=== PATIENT | female | born 1945 | race Caucasian/White ===

== ENCOUNTER 2017-03-09 15:57 | Inpatient (IN) | payer MEDICARE ==
[2017-03-09] MEDS ORDERED: Sodium Chloride For Inhalation 0.9% 3 ML NEB ONE (16:28)
[2017-03-09] MEDS ORDERED: Dexamethasone 4 mg/ml Vial ONE (16:30)
[2017-03-09 17:03] LABS: #Basophils 0.1 thou/uL (0.0-0.2); #Lymphocytes 1.6 thou/uL (1.20-3.40); #Monocytes 0.6 thou/uL (0.11-0.59); #Neutrophils 7.2 thou/uL (1.40-6.50); %Basophils 0.6 % (0.0-1.0); %Eosinophils 0.4 % (0.0-10.0); %Lymphocytes 16.6 % (21.0-51.0); %Monocytes 6.3 % (0.0-10.0); Hematocrit 23.5 % (36.0-47.0); Mean Platelet Volume 7.2 fL (7.4-10.4); Red Blood Cell (RBC) Count 2.37 mill/uL (4.20-5.40); White Blood Cell (WBC) Count 9.5 thou/uL (4.8-10.8)
[2017-03-09 17:10] LABS: PTT 79.3 SEC (22.9-36.1); Prothrombin Time 42.7 SEC (12.0-14.7)
[2017-03-09 17:29] LABS: ALT (SGPT) 18 U/L (8-55); AST (SGOT) 10 U/L (5-34); Alkaline Phosphatase 80 U/L (40-150); Anion Gap 16 mmol/L (10-20); BUN (Urea Nitrogen) 43 mg/dL (9.8-20.1); Bilirubin, Total 0.3 mg/dL (0.2-1.2); CK (CPK) 29 U/L (29-168); Calc. Creatinine Clearance 0 mL/min (70-130); Calcium 9.9 mg/dL (7.8-10.44); Carbon Dioxide 19 mmol/L (23-31); Chloride 108 mmol/L (98-107); Estimated GFR-MDRD 42; Globulin 2.3 g/dL (2.4-3.5)
[2017-03-09 17:32] LABS: Troponin I 0.015 ng/mL (< 0.028)
--- NOTE | 2017-03-09 18:49 | RAD ---
SINGLE VIEW OF THE CHEST: 03/09/17 COMPARISON: 02/06/17 HISTORY: Shortness of breath for one to two weeks and dyspnea. FINDINGS: Single view of the chest shows normal sized cardiomediastinal silhouette. The Mediport is unchanged in position. Surgical clips are seen in the left hilar region. There is no evidence of consolidation , mass or pleural effusions. IMPRESSION: No evidence of acute cardiopulmonary disease. POS: [facility]
[2017-03-09] MEDS ORDERED: Heparin 25,000 units/D5W 500 ML ONE (18:50)
--- NOTE | 2017-03-09 18:54 | RAD ---
TWO VIEWS OF THE NECK SOFT TISSUES: 03/09/17 COMPARISON: None. HISTORY: Shortness of breath for one to two weeks that is gradually worsening. Dyspnea. Tightness in her thro at. FINDINGS: Two views of the neck soft tissues shows no evidence of radiopaque foreign body. No prevertebral sof t tissue swelling is seen. No swelling of the epiglottis is seen. Mild degenerative changes are seen in the cervical spine. IMPRESSION: No significant soft tissue abnormality of the neck. POS: [facility]
[2017-03-09] MEDS ORDERED: Ondansetron HCl/PF 4 MG/2 ML Vial IVP PRN (20:38)
[2017-03-09] MEDS ORDERED: Ondansetron ODT 4 MG TAB SL PRN (20:38)
[2017-03-09] MEDS ORDERED: Sodium Chloride 0.9% 1,000 ML IV SCH (20:38)
[2017-03-09] MEDS ORDERED: Heparin 25,000 units/D5W 500 ML IV SCH (20:45)
[2017-03-09] MEDS ORDERED: Dexamethasone 4 mg/ml Vial SLOW IVP SCH (21:00)
[2017-03-09] MEDS ORDERED: Acetaminophen 325 MG TAB PO PRN (21:33)
[2017-03-09] MEDS ORDERED: Dextrose 5% in Water 1,000 ML IV PRN (21:33)
[2017-03-09] MEDS ORDERED: Heparin 25,000 units/D5W 500 ML IVPB SCH (21:33)
[2017-03-09] MEDS ORDERED: Heparin 10,000 UNITS/ 10 ML VIAL SLOW IVP SCH (21:33)
[2017-03-09] MEDS ORDERED: Dextrose 50% Abboject 50 ML SYRINGE SLOW IVP PRN (21:33)
[2017-03-09 22:10] VITALS: BMI 28.4
[2017-03-09 22:48] LABS: Oxyhemoglobin 96.8 % (94.0-97.0)
[2017-03-09 22:50] LABS: Modified Allen's Test POSITIVE; Sodium 137 mmol/L (135-148)
[2017-03-09 22:51] LABS: Vent NO
[2017-03-10] MEDS: HumaLOG 300 UNITS/3 ML VIAL SC PRN ×5 (01:41→23:34)
[2017-03-10 01:52] LABS: PTT 53.5 SEC (22.9-36.1)
[2017-03-10 02:06] LABS: Iron 61 ug/dL (50-170)
[2017-03-10 02:12] LABS: Hematocrit 21.8 % (36.0-47.0)
--- NOTE | 2017-03-10 03:06 | HP ---
PRIMARY CARE PHYSICIAN: Dr. Howard. CHIEF COMPLAINT: \\\\"I can't breathe.\\\\" HISTORY OF PRESENT ILLNESS: Ms. Tian is a pleasant 71-year-old female that has a complicated med ical history. She has a history of lung cancer, status post left upper lobe resection. She develop ed vocal cord paralysis following her surgery for lung cancer. She has been receiving Botox injecti ons for this. She also has a history of coronary artery disease with stent placement and recently d iagnosed with pulmonary embolism on full anticoagulation. She says that she had been having difficu lty with her breathing off and on and she has been seeing Dr. Newton, the customer engagement analyst for Botox injections to help with the vocal cord paralysis. However, she says it appears as if she is not santillan ving much success with these treatments and there was some talk that she may have some type of more permanent treatment for the vocal cord paralysis. She says that in the last few days, she has been becoming increasingly more short of breath. She says she cannot really tell if it is from her heart or from the vocal cord paralysis, but all that she can tell is that she cannot breathe. She also b alie. When she was in the ER, she was treated with neb treatments as well as racemic epinephrine with some improvement in her symptoms. Dr. Newton was called as well as Dr. Smith and they are r ecommending to bring her in the hospital, place her on a heparin drip and continue the neb treatment s, steroids, and possibly racemic epinephrine, if she does not improve, then she may be a candidate for tracheostomy placement. The patient denies any chest pain, but she has had some increase in low er extremity edema. She denies any throat pain, no fevers or chills. REVIEW OF SYSTEMS: Constitutional: Again, no fevers; however, she did mention some chills, no nigh t sweats, and no weight loss. HEENT: No headache, no dizziness, no visual changes, no sore throat, no rhinorrhea, no neck pain, no adenopathy. Pulmonary: She has had some wheezing. No hemoptysis, no cough. Cardiovascular: She denies any chest pain, no PND, no orthopnea. Gastrointestinal: No abdominal pain, no nausea, no vomiting, no change in bowels. Genitourinary: No urinary frequency, hematuria, no hesitancy. Neurologic: No focal weakness, numbness, no seizures. Psychiatric: No symptoms of anxiety or depression. Skin and Integument: No skin changes. No rash. PAST MEDICAL HISTORY: Significant for lung cancer diagnosed in 2015; deep vein thrombosis and pulmo nary embolism; chronic respiratory failure secondary to chronic obstructive pulmonary disease; vocal cord paralysis; coronary artery disease, status post OK and status post stent, she has several nazario ining stents yet it to be placed; diabetes mellitus, type 2. PAST SURGICAL HISTORY: She has had a left upper lobectomy, carotid stent, and coronary stent. SOCIAL HISTORY: She is a former smoker. She occasionally drinks. She is . CODE STATUS: Her code status is FULL CODE. ALLERGIES: No known drug allergies. FAMILY HISTORY: No history of any heritable diseases. CURRENT MEDICATIONS: Include Coumadin 5 mg daily, amantadine 100 mg three times a day, carvedilol 2 5 mg twice a day, Plavix 75 mg daily, losartan 100 mg daily, Lantus insulin 40 units twice a day, losartan 100 mg daily, gabapentin 300 mg three times a day, and Novolin 70/30 on a sliding scale with meals. PHYSICAL EXAMINATION: GENERAL: She is alert and oriented. She appears to be in no acute distress. VITAL SIGNS: Blood pressure was 135/59, heart rate 96, respiratory rate of 29, temperature is 98. HEENT: Her pupils are equal, round, and reactive. Extraocular muscles are intact. Sclerae are ani cteric. Throat no erythema, no exudates. NECK: No adenopathy. No bruits. She did have some mild stridor. LUNGS: She has some mild expiratory wheeze, no rales. CARDIOVASCULAR: She has a normal S1 and S2. I did not appreciate an S3 or S4. No murmurs, clicks, no rubs. ABDOMEN: Soft, it is nontender, nondistended. Positive for bowel sounds. There is no rebound, no guarding. EXTREMITIES: She has got 1+ pitting edema. NEUROLOGICALLY: The exam is nonfocal. LABORATORY DATA: On her lab results, CBC: The white blood cell count is 9.5, hemoglobin 7.9, hemat ocrit is 23, platelet count is 225. INR was 4.2. Sodium 138, potassium 4.6, chloride is 108, CO2 i s 19, BUN of 43, creatinine of 1.2, glucose is 237. ASSESSMENT AND PLAN: 1. This is a 71-year-old female that has a sensation of shortness of breath, which she is attributi ng to vocal cord paralysis. She also has some significant anemia, which is macrocytic anemia. Her hemoglobin and hematocrit is quite a bit lower than it has been in the past, which may be contributi ng to her symptoms as well and she also has a history of coronary artery disease and no need for add itional revascularization, possibly with stent placement. She will be admitted to Telemetry. We wi ll continue neb treatments as well as IV steroids. We will consult her wireless operator in the a.m. fo r further recommendations. She has been placed on a heparin drip in lieu of Coumadin in the event t hat she requires an emergent tracheostomy. Also, we will need to get stool guaiacs and monitor hemo globin and hematocrit, should it go much lower, she may require a transfusion, which may also improv e her dyspnea as well. 2. We will also consult Dr. Neff, her banquet set up person with regard to her coronary artery disease to de termine if it is contributing to her symptoms as well.
[2017-03-10] MEDS ORDERED: Nitroglycerin 2% Ointment 1 INCH/1 GM Packet TOP PRN (03:59)
[2017-03-10 04:38] LABS: #Lymphocytes 0.7 thou/uL (1.20-3.40); #Monocytes 0.1 thou/uL (0.11-0.59); #Neutrophils 7.5 thou/uL (1.40-6.50); %Basophils 0.4 % (0.0-1.0); %Lymphocytes 8.2 % (21.0-51.0); %Monocytes 0.7 % (0.0-10.0); Hematocrit 21.3 % (36.0-47.0); Red Blood Cell (RBC) Count 2.15 mill/uL (4.20-5.40); White Blood Cell (WBC) Count 8.2 thou/uL (4.8-10.8)
[2017-03-10 05:01] LABS: Anion Gap 11 mmol/L (10-20); BUN (Urea Nitrogen) 44 mg/dL (9.8-20.1); Calc. Creatinine Clearance 49 mL/min (70-130); Calcium 9.4 mg/dL (7.8-10.44); Carbon Dioxide 20 mmol/L (23-31); Chloride 111 mmol/L (98-107); Estimated GFR-MDRD 43
[2017-03-10 05:07] LABS: Troponin I 0.017 ng/mL (< 0.028)
--- NOTE | 2017-03-10 05:29 | PDOC.EVN ---
Event Note - Event Note Event Note: Patient in resp distress with tachypnea and chest pains. Hb around 7, has been progressively decreasing. Heparin drip help as inr is therapeutic. Transfer pt to IM for close monitoring. BP is stable. GI consult. Stool Occult is pending. Likely has a component of anxiety.
[2017-03-10] MEDS: SODIUM CHLORIDE IVP SCH ×2 (08:47→18:08)
[2017-03-10] MEDS: ADMIXTURE FEE IVP SCH ×2 (08:47→18:08)
[2017-03-10] MEDS: PANTOPRAZOLE IVP SCH ×2 (08:47→18:08)
[2017-03-10] MEDS ORDERED: Famotidine/PF 20 mg/2ml Vial SLOW IVP SCH (09:00)
[2017-03-10 10:26] LABS: Troponin I 0.022 ng/mL (< 0.028)
[2017-03-10] MEDS ORDERED: Oxymetazoline HCl 0.05% ( 15 ML ) ONE (10:28)
[2017-03-10 10:29] LABS: Prothrombin Time 41.9 SEC (12.0-14.7)
--- NOTE | 2017-03-10 10:53 | PRG ---
DATE OF SERVICE: 03/10/2017 SERVICE: Pulmonary Medicine. HISTORY OF PRESENT ILLNESS: The patient is doing poorly from a respiratory standpoint. Slowly over the past several months, she has had increasing dyspnea with exertion. This has been associated with horrendous wheezing which has been centered around the neck. She does not have any significant cough, sputum production, fevers, chills, nausea, vomiting, or chest discomfort. She denies having any palpitations. Minimal exertion creates such severe dyspnea that she has to stop and rest frequently. She is completely debilitated by this difficulty with breathing. PAST MEDICAL HISTORY: 1. Adenocarcinoma of the lung. 2. Chronic hypoxic respiratory failure. 3. COPD, moderate. 4. Vocal cord paralysis. 5. Coronary artery disease, status post history of [place]. 6. Type 2 diabetes mellitus. PAST SURGICAL HISTORY: 1. Left upper lobectomy. 2. Coronary intervention. 3. Carotid arterial stent placement. SOCIAL HISTORY: She is a former smoker and has greater than [id number] history. She drinks on occasion. She denies any illicit drugs. She is , but has no exposure to chemicals, asbestosis or tuberculosis. FAMILY HISTORY: Noncontributory. ALLERGIES: No known drug allergies. MEDICATIONS: List of her inpatient medications were reviewed. There are no updates at this time. REVIEW OF SYSTEMS: General, head, ears, eyes, nose, throat, cardiovascular, respiratory, GI, , musculoskeletal, neurologic and skin is negative except as mentioned in the HPI. PHYSICAL EXAMINATION: VITAL SIGNS: Afebrile, pulse 92, blood pressure 139/56, respirations 14, saturation 98% on 2 liters nasal cannula. GENERAL: With ambulation, the patient has obvious stridor. Her saturations do not drop. HEENT: Normocephalic, atraumatic. Sclerae are white, conjunctivae pink. Oral and nasal mucosa is moist without lesions. LUNGS: Decent air entry. There is minimal prolonged expiratory phase, but I really do not hear anything other than transmitted breath sounds. There is inspiratory and expiratory wheeze which is essentially continuous with deep breathing. It has the same tone and there is no polyphonic component to it. HEART: Normal rate, regular. ABDOMEN: Soft, nontender, and nondistended. Bowel sounds positive. MUSCULOSKELETAL: No cyanosis or clubbing. There is no pitting in the bilateral lower extremities. NEUROLOGIC: Grossly nonfocal. LABORATORY DATA: WBC 8.2, hemoglobin 7.1, and platelets 198,000. Neutrophil count is 90%. INR 4.2 previously. PTT 36. A pH 7.42, pCO2 27, pO2 129. Creatinine 1.23. BUN 44, basic metabolic profile is otherwise unremarkable. Troponin is negative x2. Liver function studies are unremarkable. BNP is normal. IMAGIN. Chest x-ray demonstrates no acute cardiopulmonary abnormality identified. 2. X-ray of the soft tissues of the neck demonstrates no significant soft tissue abnormality is identified. ASSESSMENT: 1. Stridor secondary to vocal cord paralysis. 2. Acute blood loss anemia. 3. Chronic obstructive pulmonary disease without acute exacerbation. 4. Coronary artery disease. 5. Dyspnea with exertion. PLAN: We will get spirometry. We are going to pay particular interest to the flow volume loops. If there is a Hamburger sign, an ENT consultation will be placed to evaluate the vocal cord paralysis. This was going to be done on an elective basis in the outpatient setting in a couple of months after she completed 3 months of anticoagulation, but unfortunately, we are going to have to move up her timetable. She will be initiated on a heparin drip for the time being while we hold her Coumadin. I will provide her with diet. If there is no evidence of vocal cord problem on the flow volume loop, Cardiology consultation will be placed. Her current respiratory distress has absolutely nothing to do with intrinsic lung disease. DANNI
--- NOTE | 2017-03-10 12:09 | CON ---
DATE OF CONSULTATION: 03/10/2017 CARDIOLOGY CONSULT NOTE INDICATION FOR CONSULTATION: This is a 71-year-old female with history of significant coronary courtney ry disease, who has undergone angioplasty and stent placement to the right coronary artery. Back in July of this year, she also has a history of lung cancer and has had a partial lung resection. She has had a left upper lobe removal. She has complained of increasing shortness of breath. She has some problems with her vocal cords. She has apparently some vocal cord paralysis on the one nabil e and this has been dealt with. She presented again last night complaining of increasing shortness of breath, dyspnea on exertion, unable to breathe. She did not have any acute EKG changes. Enzymes are indeterminate. The troponin I is negative, they are all negative for enzymes. Her cardiac enz ymes are negative for any evidence of myocardial infarction. She was, however, found to be anemic. Her hemoglobin today is 7.1 and back in January her hemoglobin was 12.8. She denies any significant chest pain; however, early this morning she did have some chest pain 3/10, which she says it was no t the same as her pain when she had the stent placements. But she did not have any significant ches t pain at that time, only some mild chest pressure. Her main concern and complaint at this time is she just cannot breathe and she is very short of breath. Her chest x-ray does not show any acute ch anges. At this time, her hemoglobin is 7.1. Her creatinine is 1.23. She did have an elevation of her protime and INR, her INR is 4.2. She had previously been placed on Coumadin due to her recent p ulmonary embolus a few months ago. She denies any evidence of blood in the stools or any other hemo ptysis or any hematuria. At this time, she is relatively comfortable except for she continues to be short of breath. PAST MEDICAL HISTORY: Significant for the lung cancer with a left upper lobe resection, total hyste rectomy, appendectomy, left leg surgery. She has had brain surgery also, she has hypercholesterolem ia, type 2 diabetes. She has had a CVA. She has multiple sclerosis. She has hypertension. She santillan s coronary artery disease. She has undergone angioplasty and stent placement. ALLERGIES: None. MEDICATIONS: Her medications prior to admission included amantadine, insulin, carvedilol 25 mg b.i. d., Plavix 75 mg a day, Crestor 20 mg a day, gabapentin 300 mg 3 times a day. She also takes Humalo g with KwikPen as needed and she is on Lantus SoloSTAR 100 units/3 mL as needed as directed, losarta n 100 mg daily, aspirin 81 mg a day and she had been placed on Coumadin. SOCIAL HISTORY: She smoked in the past. She has occasional alcohol. She has daily alcohol use, 1- 2 drinks of whiskey or hard liquor. She is . She has children who are alive and well. She no longer smokes. FAMILY HISTORY: Her father had myocardial infarction. REVIEW OF SYSTEMS: She denied any new HEENT complaints. She does have problems with the breathing and has vocal cord problems, but otherwise no new HEENT complaints. PULMONARY: She only complains of shortness of breath. She had no pain. CARDIOVASCULAR: No chest pain or any palpitations. No l ower extremity edema. GASTROINTESTINAL: She had no nausea, vomiting or diarrhea. No abdominal siria n. She had no dysuria, polyuria or hematuria. MUSCULOSKELETAL: She had no significant restriction s or joint swelling. NEUROLOGIC: She has had no recent seizures, syncope or any other significant abnormalities. PHYSICAL EXAMINATION: GENERAL: Reveals a well-developed and well-nourished female. VITAL SIGNS: Her blood pressure is 121/56, heart rate is 92 and regular, respiratory rate is 29. S he is 98% O2 saturation. She is afebrile. She does look to be somewhat pale and distressed due to the work of breathing, but otherwise appears to be relatively normal. NECK: Shows no evidence of JVD and there are no bruits noted. CHEST: She has somewhat decreased breath sounds, but there were no significant wheezes, rhonchi, or rales noted. CARDIOVASCULAR: Exam reveals a regular rate and rhythm with normal S1, S2. I cannot hear an S3 nor an S4. She has a well-healed surgical incision on the left lateral thoracic area extending around to the side due to her previous partial lung resection. ABDOMEN: Unremarkable. It is soft and nontender. EXTREMITIES: Show no clubbing, cyanosis or edema. Pedal pulses are present. NEUROLOGIC: She appears to be fully intact. SKIN: Warm and dry. IMAGING: Her EKG shows normal sinus rhythm with no acute changes. Chest x-ray shows no acute wade es. IMPRESSION AND PLAN: 1. A middle-aged female with significant dyspnea on exertion which most likely is a combination of her pulmonary problems with the vocal cord paralysis as well as the anemia, most likely this has wor sened her shortness of breath and dyspnea. She does have coronary artery disease that may be benefi cial to the patient to decrease the risk of ischemia since she has coronary artery disease in her ot her vessels which included 60%-70% stenosis in the proximal ramus, 70% stenosis in the first diagona l, 70% stenosis in the distal LAD. In order to decrease the risk of anemia, it would be best if her hemoglobin was at least 10 probably. Also at this time there is no indication she suffered a myoca rdial infarction. Enzymes are negative. 2. History of lung cancer with significant shortness of breath. Hopefully, this was not worsening of her overall lung disease and as far as I know, she is in remission. This will be dealt with by kaylie lgynn day porter and the primary service. 3. History of lower extremity edema in the past which has resolved. She has no edema at this time. 4. Anemia, this will need to be evaluated. She has been on anticoagulation and at this time is ove r anticoagulated with Coumadin and this will be held. She will need to be started on some of the me dication due to history of PEs. Will need seek for the etiology of the anemia, if she has any bleed ing, I suspect gastrointestinal has already been consulted and will see the patient later. We will be more than happy to continue to follow the patient with you, but unfortunately at this time it sadi ears that her cardiac status is stable. She did have elevated D-dimer in the past. I do not see th at was repeated at this time, but this is a very nonspecific finding and may be inaccurate in her ca se anyway. ADDENDUM: Also please note the patient has a Resolute stent, these are drug-coated stents or drug-e luting stents. She will need to be on some type of oral anticoagulation for at least a year. These were put in back in July. She needs to have at least another 6 months. This is another indica tion we may need to transfuse this lady, but certainly need to find out the etiology of her bleeding . History of diabetes. She is on insulin and this is being dealt with by the primary care service. Certainly she is a problematic patient due to the bleeding issues and the anemia with her coronary a rtery disease as well as her lung cancer.
--- NOTE | 2017-03-10 15:14 | PDOC.PN ---
- Subjective Encounter Start Date: 03/10/17 Encounter Start Time: 15:00 Subjective: f/u dyspnea which has improved somewhat since admit. Likely multifactorial -: but prominent vocal cord paralysis likely main component. - Objective Resuscitation Status: Resuscitation Status FULL:Full Resuscitation MAR Reviewed: Yes Vital Signs & Weight: Vital Signs (12 hours) Temp Pulse Resp BP Pulse Ox 03/10/17 14:45 99 21 H 100 03/10/17 14:40 98.4 F 100 03/10/17 12:00 97.9 F 03/10/17 11:49 96.9 F L 100 03/10/17 11:25 98.1 F 100 03/10/17 10:45 96 24 H 100 03/10/17 08:00 97.8 F 92 29 H 98 03/10/17 07:21 92 17 100 03/10/17 06:00 96 27 H 142/59 H 98 03/10/17 05:00 96 32 H 133/51 L 100 03/10/17 04:00 97.7 F 96 27 H 135/62 94 L 03/10/17 03:51 99 03/10/17 03:18 97 20 100 Weight Weight 160 lb 6 oz Most Recent Monitor Data Heart Rate from ECG 98 NIBP 137/57 NIBP BP-Mean 76 Respiration from ECG 28 SpO2 100 I&O: 03/09/17 03/10/17 03/11/17 06:59 06:59 06:59 Intake Total 729 1212 Output Total 730 625 Balance -1 587 Result Diagrams: 03/10/17 04:10 03/10/17 04:10 Additional Labs: Accuchecks 03/10/17 03/10/17 03/10/17 12:04 06:18 01:24 POC Glucose 408 H 299 H 354 H Laboratory Tests 02/11/17 02/12/17 02/13/17 04:16 05:20 06:20 Hgb 11.6 L 11.4 L PT INR APTT Creatinine 0.96 02/13/17 02/14/17 03/08/17 06:20 05:10 12:52 Hgb 11.5 L 9.3 L PT INR APTT Creatinine 0.99 03/09/17 03/09/17 03/10/17 16:55 16:55 01:25 Hgb 7.9 L PT 41.9 H INR 4.1 H* APTT 53.5 H Creatinine 1.26 H 03/10/17 01:55 Hgb 7.2 L PT INR APTT Creatinine Radiology Reviewed by me: Yes (PCXR - no acute infiltrate) EKG Reviewed by me: Yes (Tele -SR in 80's) Phys Exam - Physical Examination Constitutional: NAD HEENT: PERRLA, oral pharynx no lesions upper airway stridor Neck: no JVD, supple Respiratory: no wheezing, clear to auscultation bilateral Cardiovascular: RRR Gastrointestinal: soft, non-tender, no distention, positive bowel sounds Musculoskeletal: no edema, pulses present Neurological: normal sensation, moves all 4 limbs Psychiatric: A&O x 3 Skin: normal turgor, cap refill <2 seconds Dx/Plan (1) Chronic respiratory failure with hypoxia Code(s): J96.11 - CHRONIC RESPIRATORY FAILURE WITH HYPOXIA Status: Chronic Comment: Increased dyspnea likely due to vocal cord paralysis, ENT evaluation and ? surgical intervention for correction (2) Dyspnea Code(s): R06.00 - DYSPNEA, UNSPECIFIED Status: Acute Qualifiers: Dyspnea type: dyspnea on exertion Qualified Code(s): R06.09 - Other forms of dyspnea Comment: Multifactorial, likely due vocal cord paralysis (3) Pulmonary embolism Code(s): I26.99 - OTHER PULMONARY EMBOLISM WITHOUT ACUTE COR PULMONALE Status : Acute Qualifiers: Chronicity: acute Acute cor pulmonale presence: without acute cor pulmonale Comment: Chronic anticoagulation with Coumadin, hold Coumadin given INR >4, repeat INR, Heparin bridging while supratherapeutic (4) History of tobacco abuse Code(s): Z87.891 - PERSONAL HISTORY OF NICOTINE DEPENDENCE Status: Chronic Comment: Nicotine patch daily (5) Primary lung adenocarcinoma Code(s): C34.90 - MALIGNANT NEOPLASM OF UNSP PART OF UNSP BRONCHUS OR LUNG Status: Chronic Comment: S/P Sx and Chemo Rx, supportive measures (6) Supratherapeutic INR Code(s): R79.1 - ABNORMAL COAGULATION PROFILE Status: Acute Comment: Hold Coumadin and bridge with Heparin - Plan PT/OT, respiratory therapy, out of bed/ambulate, DVT proph w/SCDs Stable overall -: Continue supportive care -: Hold Coumadin -: ENT consult for vocal cord paralyisis evaluation -: AM lab: H/H, PT/INR * .
--- NOTE | 2017-03-10 20:59 | CON ---
DATE OF CONSULTATION: 03/10/2017 CHIEF COMPLAINT: Black stools. HISTORY OF PRESENT ILLNESS: Ms. Tian is a 71-year-old woman who presented to the emergency room yesterday with shortness of breath. She was found to have severe anemia and admitted to the ICU. S he reports having passed a couple of black tar-like stools, a couple of black tar-like stools yester day and 3 or 4 the day before that. She has been on anticoagulation with Coumadin for pulmonary emb olism within the last few months, perhaps last couple of weeks. She had a drug-coated stent placed back in July and Cardiology has evaluated her and recommends that she be on some type of blood t hinner or antiplatelet or anticoagulation in light of this if possible as well. She has further com plicating factors including lung resection for lung cancer back in July. She has a partial voca l cord paralysis and chronic hypoxic respiratory failure. She has no nausea or vomiting. No abdomi nal pain. No diarrhea or constipation, otherwise. PAST MEDICAL HISTORY: Lung cancer status post lobectomy, chronic respiratory failure, COPD, vocal c ord paralysis, coronary artery disease with a history of TN and coronary stents. She had a drug-coa med stent placed in 07/2016, diabetes mellitus type 2, pulmonary embolism. PAST SURGICAL HISTORY: Left upper lobectomy, coronary stents, carotid stent. FAMILY HISTORY: Negative for GI malignancy. SOCIAL HISTORY: She has quit smoking. Occasional alcohol, no drugs. ALLERGIES: No known drug allergies. MEDICATIONS: Prior to admission, Coumadin, Plavix, amantadine, carvedilol, losartan, Lantus, gabape ntin, and Novolin. REVIEW OF SYSTEMS: Negative x10 systems reviewed except as stated in the history of present illness . PHYSICAL EXAMINATION: VITAL SIGNS: Pulse 97, blood pressure 124/54, and temperature 98.9. GENERAL: She is in no acute distress. She is awake and alert. HEENT: Eyes have no scleral icterus. She is pale. OROPHARYNX: Clear, without lesions. NECK: No cervical or supraclavicular lymphadenopathy. LUNGS: Clear to auscultation bilaterally. HEART: Regular rate and rhythm. ABDOMEN: Soft, nontender, and nondistended. Bowel sounds are present. EXTREMITIES: No lower extremity edema. LABORATORY DATA: Hemoglobin is 7.1 and this morning she has received 2 units of blood transfusion s radha then. Her baseline hemoglobin from last month was 11.5, white blood cell count 8.2, platelets 198. INR this morning was 4.1. Creatinine 1.23, BUN 44. LFTs were normal. Albumin 3.7. IMPRESSION: 1. Anemia secondary to acute blood loss. She presents with melena for the last 3 days. Her hemogl obin was stable from yesterday afternoon to this morning and she has now received 2 units transfusio n with post-transfusion CBC pending. She has black stools and peptic ulcer disease would be likely. 2. Coagulopathy secondary to anticoagulation. She is on Plavix and Coumadin. This is for a drug-c oated stent placed in July and recent pulmonary embolism. She does need to be on anticoagulatio n and antiplatelets and endoscopic assessment of continued bleeding or bleeding risk will be importa nt to help guide therapy from here. 3. Chronic obstructive pulmonary disease with history of lobectomy and lung cancer and vocal cord p aralysis. This does complicate the risk for sedation. PLAN: 1. Proton pump inhibitor drip. 2. Transfuse as needed. 3. Warfarin has been held. 4. We will follow her hemoglobin to see how she responds to the transfusion and has the INR returns towards normal. 5. Ideally we would perform EGD tomorrow; however, will need to discuss with Pulmonology regarding sedation and risks. I will tentatively plan for EGD tomorrow afternoon.
[2017-03-10] MEDS: ALPRAZolam 0.25 MG TAB PO PRN (21:16)
[2017-03-11] MEDS: SODIUM CHLORIDE IVP SCH ×3 (00:43→23:00)
[2017-03-11] MEDS: ADMIXTURE FEE IVP SCH ×3 (00:43→23:00)
[2017-03-11] MEDS: PANTOPRAZOLE IVP SCH ×3 (00:43→23:00)
[2017-03-11] MEDS: ALPRAZolam 0.25 MG TAB PO PRN ×2 (03:43→22:03)
[2017-03-11 04:43] LABS: #Basophils 0.1 thou/uL (0.0-0.2); #Lymphocytes 0.9 thou/uL (1.20-3.40); #Monocytes 1.2 thou/uL (0.11-0.59); %Basophils 0.6 % (0.0-1.0); %Eosinophils 0.1 % (0.0-10.0); %Lymphocytes 7.2 % (21.0-51.0); %Monocytes 9.8 % (0.0-10.0); Hematocrit 27.6 % (36.0-47.0); Mean Platelet Volume 7.3 fL (7.4-10.4); Red Blood Cell (RBC) Count 2.88 mill/uL (4.20-5.40); White Blood Cell (WBC) Count 12.1 thou/uL (4.8-10.8)
[2017-03-11 05:52] LABS: PTT 33.9 SEC (22.9-36.1); Prothrombin Time 41.4 SEC (12.0-14.7)
[2017-03-11] MEDS: HumaLOG 300 UNITS/3 ML VIAL SC PRN ×4 (06:43→22:00)
--- NOTE | 2017-03-11 11:38 | PDOC.PN ---
- Subjective Encounter Start Date: 03/11/17 Encounter Start Time: 11:30 Subjective: Feels better overall. f/u after admission for dyspnea likely multifactorial -: Received 2u PRBC's with improved H/H. INR remains elevated 4.0. -: Stool guaiac neg x 2. - Objective Resuscitation Status: Resuscitation Status FULL:Full Resuscitation MAR Reviewed: Yes Vital Signs & Weight: Vital Signs (12 hours) Temp Pulse Resp Pulse Ox 03/11/17 11:20 91 18 100 03/11/17 07:20 98.0 F 90 18 100 03/11/17 07:19 98.0 F 03/11/17 06:53 91 18 100 03/11/17 02:48 100 Weight Weight 160 lb 6 oz Most Recent Monitor Data Heart Rate from ECG 93 NIBP 142/60 NIBP BP-Mean 84 Respiration from ECG 24 SpO2 100 I&O: 03/10/17 03/11/17 03/12/17 06:59 06:59 06:59 Intake Total 729 2417.1 168 Output Total 730 2290 315 Balance -1 127.1 -147 Result Diagrams: 03/11/17 03:53 03/10/17 04:10 Additional Labs: Accuchecks 03/11/17 03/11/17 03/10/17 11:09 06:29 23:33 POC Glucose 314 H 267 H 328 H 03/10/17 03/10/17 17:24 12:04 POC Glucose 344 H 408 H Laboratory Tests 02/11/17 02/12/17 02/13/17 04:16 05:20 06:20 Hgb 11.6 L 11.4 L PT INR APTT Creatinine 0.96 02/13/17 02/14/17 03/08/17 06:20 05:10 12:52 Hgb 11.5 L 9.3 L PT INR APTT Creatinine 0.99 03/09/17 03/09/17 03/09/17 16:55 16:55 16:55 Hgb 7.9 L PT INR 4.2 H* APTT Creatinine 1.26 H 03/10/17 03/10/17 03/10/17 01:25 01:55 04:10 Hgb 7.2 L 7.1 L PT 41.9 H INR 4.1 H* APTT 53.5 H Creatinine 03/11/17 03:53 Hgb PT INR 4.0 APTT Creatinine EKG Reviewed by me: Yes (Tele - SR in 90's) Phys Exam - Physical Examination Constitutional: NAD smiling, alert, responsive HEENT: PERRLA, oral pharynx no lesions + stridor Neck: no JVD, supple scattered coarse sounds Respiratory: no wheezing Cardiovascular: RRR Gastrointestinal: soft, non-tender, no distention, positive bowel sounds Musculoskeletal: no edema, pulses present Neurological: normal sensation, moves all 4 limbs Psychiatric: A&O x 3 Skin: normal turgor, cap refill <2 seconds Dx/Plan (1) Chronic respiratory failure with hypoxia Code(s): J96.11 - CHRONIC RESPIRATORY FAILURE WITH HYPOXIA Status: Chronic Comment: Increased dyspnea likely due to vocal cord paralysis, ENT evaluation and ? surgical intervention for correction (2) Dyspnea Code(s): R06.00 - DYSPNEA, UNSPECIFIED Status: Acute Qualifiers: Dyspnea type: dyspnea on exertion Qualified Code(s): R06.09 - Other forms of dyspnea Comment: Multifactorial, likely due vocal cord paralysis (3) Pulmonary embolism Code(s): I26.99 - OTHER PULMONARY EMBOLISM WITHOUT ACUTE COR PULMONALE Status : Acute Qualifiers: Chronicity: acute Acute cor pulmonale presence: without acute cor pulmonale Comment: Chronic anticoagulation with Coumadin, hold Coumadin as INR 4.0, monitor for blood loss, stool guaiac negative x 2 (4) History of tobacco abuse Code(s): Z87.891 - PERSONAL HISTORY OF NICOTINE DEPENDENCE Status: Chronic Comment: smoking cessation support (5) Primary lung adenocarcinoma Code(s): C34.90 - MALIGNANT NEOPLASM OF UNSP PART OF UNSP BRONCHUS OR LUNG Status: Chronic Comment: S/P Sx and Chemo Rx, supportive measures (6) Supratherapeutic INR Code(s): R79.1 - ABNORMAL COAGULATION PROFILE Status: Acute Comment: Hold Coumadin, repeat INR daily - Plan PT/OT, respiratory therapy, out of bed/ambulate, DVT proph w/SCDs Stable overall -: Continue supportive measures Duonebs, O2 -: Resume Levemir 35u sc BID, ISS -: Hold Coumadin -: AM lab: BMP, CBC, PT/INR * .
[2017-03-11] MEDS: Insulin Detemir 100 UNITS/ML 35 UNITS in Pre-Filled Syringe 1 EACH SC SCH ×2 (12:37→21:59)
--- NOTE | 2017-03-11 12:44 | PDOC.CTH ---
<Mary Gorman - Last Filed: 03/11/17 12:44> Cardiology Progress Note - Subjective The pt was seen and examined. No overnight events. No cardiac complaints. She stated she can breath better today. - Objective Vital Signs Temp Pulse Resp Pulse Ox 03/11/17 11:20 91 18 100 03/11/17 07:20 98.0 F 90 18 100 03/11/17 07:19 98.0 F 03/11/17 06:53 91 18 100 03/11/17 02:48 100 Weight 160 lb 6 oz 03/10/17 03/11/17 03/12/17 06:59 06:59 06:59 Intake Total 729 2417.1 168 Output Total 730 2290 315 Balance -1 127.1 -147 - Physical Examination General/Neuro: alert & oriented x3 Neck: no JVD present Lungs: CTA (diminished at bases) Heart: RRR Abdomen: soft Extremities: other: (no edema) - Telemetry Telemetry Rhythm: SR 90s - Labs Result Diagrams: 03/11/17 03:53 03/10/17 04:10 Troponin/CKMB CK-MB (CK-2) 1.3 ng/mL (0-6.6) 03/09/17 16:55 Troponin I 0.022 ng/mL (< 0.028) 03/10/17 09:56 - Assessment/Plan 1. Chronic respiratory failure with hypoxia - stable with 2LNC; managed by PCP 2. Pulmonary embolism - Hold Coumadin due to acute Anemia; Hgb 9.4 today from 7.1 yesterday after 2U of PRBCs; INR 4.0 today from 4.1 yesterday 3. Dyspnea - Possible due to vocal cord paralysis; 4. CAD with hx of Drug-coated stent with Plavix for 6 more months 5. Lung adenocarcinoma - S/P Sx and Chemo Rx, 6. History of tobacco abuse MAR reviewed Review of Systems - Review of Systems EENTM: reports: no symptoms reported Respiratory: reports: SOB with excertion Cardiac (ROS): reports: no symptoms reported ABD/GI: reports: no symptoms reported : reports: no symptoms reported Musculoskeletal: reports: no symptoms reported <Lizet Neff - Last Filed: 03/11/17 13:17> Cardiology Progress Note - Objective Vital Signs Temp Pulse Resp Pulse Ox 03/11/17 12:00 98.8 F 03/11/17 11:20 91 18 100 03/11/17 07:20 98.0 F 90 18 100 03/11/17 07:19 98.0 F 03/11/17 06:53 91 18 100 03/11/17 02:48 100 Weight 160 lb 6 oz 03/10/17 03/11/17 03/12/17 06:59 06:59 06:59 Intake Total 729 2417.1 218 Output Total 730 2290 425 Balance -1 127.1 -207 - Labs Result Diagrams: 03/11/17 03:53 03/10/17 04:10 Troponin/CKMB CK-MB (CK-2) 1.3 ng/mL (0-6.6) 03/09/17 16:55 Troponin I 0.022 ng/mL (< 0.028) 03/10/17 09:56 - Assessment/Plan Pt. seen and evaluated by me. I agree with the A/P by the [employer]. We have discussed the plan about her care. Continue Plavix for total of 1 year after stent implant ( 2016).
[2017-03-11] MEDS: Gabapentin 300 MG CAP PO SCH ×2 (15:30→21:59)
[2017-03-11] MEDS: Amantadine HCl 100 mg Capsule PO SCH ×2 (15:30→21:59)
--- NOTE | 2017-03-11 16:14 | PRG ---
DATE OF SERVICE: 03/11/2017 SUBJECTIVE: Ms. Tian has had no further bleeding today or last night. OBJECTIVE: VITAL SIGNS: Temperature is 98.8, blood pressure 125/51, pulse 85. GENERAL: She is in no acute distress. She is awake and alert. LUNGS: Clear to auscultation bilaterally. HEART: Regular rate and rhythm. ABDOMEN: Soft, nontender, nondistended. Bowel sounds are present. EXTREMITIES: No lower extremity edema. LABORATORY DATA: Hemoglobin is 9.4 after 2 units of transfusion. INR is still 4.0. IMPRESSION: 1. Supratherapeutic INR on warfarin for pulmonary embolism. She is also on antiplatelet medication s for coronary stent. 2. Anemia apparently due to acute blood loss. She has been passing black stools and drop in her he moglobin. The Hemoccult is negative. If this is an accurate lab tests, then this is not an acute g astrointestinal bleed; however, given the clinical history, there is some question of the accuracy o f that stool sample. The patient does need to be on Plavix, so she has had a drug-coated stent plac ed within the last year; and she had a recent pulmonary embolism and needs to be on anticoagulation. Currently, she is tolerating the elevated INR. RECOMMENDATIONS: 1. Proton pump inhibitor. 2. Plan for endoscopy in the morning.
--- NOTE | 2017-03-11 18:06 | PRG ---
DATE OF SERVICE: 03/11/2017 SERVICE: Pulmonary Medicine. INTERVAL HISTORY: The patient is doing great from a cardiovascular and respiratory standpoint. She got 2 units of blood yesterday. She had a significant improvement in her breathing with this. She denies any current fevers, chills, nausea, vomiting. Interestingly, the patient's fecal occult blo od was unremarkable. PHYSICAL EXAMINATION: VITAL SIGNS: Afebrile, pulse 85, blood pressure 128/51, respirations 19, saturation 100% on room ai r. GENERAL: Patient is awake, alert, in no apparent distress. LUNGS: Excellent air entry. There is a slightly prolonged expiratory phase with minimal wheezing. That being said, with heavy breathing, her limitation is still from the upper airway. : Rodas catheter in place. NEUROLOGIC: Grossly nonfocal. LABORATORY DATA: WBC 12.1, hemoglobin 9.4, platelets 183,000 with an improving neutrophil count. I NR of 4.0. PH 7.42, pCO2 27, pO2 129. Blood sugars ranged from 267 to 408. Fecal occult blood is unremarkable. ASSESSMENT: 1. Stridor secondary to vocal cord paralysis. 2. Chronic obstructive pulmonary disease without current exacerbation. 3. Coronary artery disease. 4. Acute blood loss anemia. 5. Dyspnea with exertion. PLAN: From a purely respiratory perspective, the patient is stable for discharge from the hospital. We do have a difficult situation. She has developed acute blood loss anemia in the setting of req uire anticoagulation and antiplatelet therapy for her PCI, and recent pulmonary embolism. Her fecal occult blood was unremarkable, but I am not exactly certain where 4 units of blood has gone over e past month. If had an EGD is performed, with conscious sedation, we need to make certain that she has a secured airway. She has profound flattening of her inspiratory limb of the flow volume loop, suggesting that she has a variable extrathoracic obstruction consistent with her vocal cord lesion. We will continue supportive measures. If she continues to drop her hemoglobin counts, additional investigation may be warranted to look into where her blood is going.
[2017-03-11] MEDS: Mometasone/Formoterol 120 PUFF INHALER INH SCH (18:51)
[2017-03-11] MEDS ORDERED: Non-Formulary Item 1 EACH (Insulin Glargine,Hum.Rec.Anlog 35 UNIT) SQ SCH (21:00)
[2017-03-11] MEDS: Carvedilol 25 MG TAB PO SCH (21:59)
[2017-03-12 06:11] LABS: Prothrombin Time 29.1 SEC (12.0-14.7)
[2017-03-12] MEDS: Carvedilol 25 MG TAB PO SCH ×2 (06:16→20:51)
[2017-03-12 06:22] LABS: Hematocrit 28.2 % (36.0-47.0); Mean Platelet Volume 6.8 fL (7.4-10.4); Neutrophil 78 % (42-75); Red Blood Cell (RBC) Count 2.89 mill/uL (4.20-5.40); White Blood Cell (WBC) Count 8.7 thou/uL (4.8-10.8)
[2017-03-12 06:46] LABS: Anion Gap 8 mmol/L (10-20); BUN (Urea Nitrogen) 28 mg/dL (9.8-20.1); Calc. Creatinine Clearance 57 mL/min (70-130); Calcium 9.3 mg/dL (7.8-10.44); Carbon Dioxide 26 mmol/L (23-31); Chloride 109 mmol/L (98-107); Estimated GFR-MDRD 52
[2017-03-12] MEDS ORDERED: Midazolam HCl 2 mg/2 ml Vial ONE (09:12)
[2017-03-12] MEDS ORDERED: Lidocaine 1% PF 5 ML VIAL ONE (09:33)
[2017-03-12] MEDS ORDERED: Propofol 200 MG/20 ML VIAL ONE (09:33)
[2017-03-12] MEDS ORDERED: Ondansetron HCl/PF 4 MG/2 ML Vial IVP PRN (09:57)
[2017-03-12] MEDS: Insulin Detemir 100 UNITS/ML 35 UNITS in Pre-Filled Syringe 1 EACH SC SCH ×2 (10:59→21:07)
[2017-03-12] MEDS: Clopidogrel Bisulfate 75 MG TAB PO SCH (11:00)
[2017-03-12] MEDS: Amantadine HCl 100 mg Capsule PO SCH ×3 (11:00→20:51)
[2017-03-12] MEDS: Gabapentin 300 MG CAP PO SCH ×3 (11:00→20:51)
--- NOTE | 2017-03-12 11:37 | PDOC.CTH ---
Cardiology Progress Note - Subjective She just had her endoscopy. No new issues. - Objective Vital Signs Temp Pulse Resp BP Pulse Ox 03/12/17 10:37 97.8 F 67 16 109/50 L 100 03/12/17 08:00 98.0 F 73 20 100 03/12/17 07:36 98.0 F 73 20 101/44 L 100 03/12/17 04:00 98.4 F 87 20 120/53 L 100 03/12/17 02:34 76 16 100 03/11/17 23:44 98.8 F 84 20 121/47 L 100 Weight 160 lb 6 oz 03/11/17 03/12/17 03/13/17 06:59 06:59 06:59 Intake Total 2417.1 2203 Output Total 2290 2092 Balance 127.1 111 - Physical Examination General/Neuro: alert & oriented x3, NAD Neck: no JVD present Lungs: unlabored respirations Heart: RRR Abdomen: NT/ND Extremities: + edema B (Trace) - Telemetry Telemetry Rhythm: NSR - Labs Result Diagrams: 03/12/17 05:35 03/12/17 05:35 Troponin/CKMB CK-MB (CK-2) 1.3 ng/mL (0-6.6) 03/09/17 16:55 Troponin I 0.022 ng/mL (< 0.028) 03/10/17 09:56 - Assessment/Plan 1. Chronic respiratory failure with hypoxia - stable 2. Pulmonary embolism - Coumadin still on hold as it was supratherapeutic but at 2.6 today. No source identified on EGD. Pending colonoscopy. 3. Dyspnea - Multifactorial, vocal cord paralysis and anemia. 4. CAD with hx of Drug-coated stent In jul of this year. Resume Plavix as soon as safe from anemia standpoint. 5. Lung adenocarcinoma - S/P Sx and Chemo Rx, 6. History of tobacco abuse PLAN: - Restart warfarin tomorrow. - Plavix only once cleared with colonoscopy.
[2017-03-12] MEDS: Mometasone/Formoterol 120 PUFF INHALER INH SCH ×2 (13:33→19:18)
--- NOTE | 2017-03-12 14:49 | OP ---
DATE OF PROCEDURE: 03/12/2017 PROCEDURE: Esophagogastroduodenoscopy. PREOPERATIVE DIAGNOSIS: Suspected GI bleed with drop in hemoglobin and black stools. The hemoccult was negative; however. Due to her need for antiplatelet and anticoagulation, EGD was performed to rule out bleeding source to assess risk for restarting anticoagulation. PROCEDURE IN DETAIL: Informed consent was obtained. The patient was sedated with total intravenous anesthesia. The bite block was placed and the endoscope was advanced easily to the second portion of the duodenum and retroflexion was performed in the stomach. The esophagus was normal. The GE ju nction was normal. The stomach was normal including retroflexed views. The pylorus and first and s econd portions of the duodenum were normal. Air was suctioned from the stomach and the procedure wa s completed. IMPRESSION: 1. Normal esophagogastroduodenoscopy. 2. Anemia requiring transfusion. At this point, there is inadequate evidence that she had an obvio us gastrointestinal bleeding and currently she has no ongoing bleeding. She has been Hemoccult nega tive and her hemoglobin has been stable for the last couple of days with a therapeutic INR. RECOMMENDATIONS: 1. Advance diet. 2. Okay to restart anticoagulation from a GI standpoint. 3. Stop proton pump inhibitor drip. We will change her to oral proton pump inhibitor for GI prophy laxis. 4. I will sign off. Please call if GI can be of assistance.
--- NOTE | 2017-03-12 15:38 | PDOC.PN ---
- Subjective Encounter Start Date: 03/12/17 Encounter Start Time: 15:30 Subjective: f/u for dyspnea likely multifactorial. H/H stable and EGD unrevealing. -: INR improved to 2.6. Pt feeling better overall. - Objective Resuscitation Status: Resuscitation Status FULL:Full Resuscitation MAR Reviewed: Yes Vital Signs & Weight: Vital Signs (12 hours) Temp Pulse Resp BP Pulse Ox 03/12/17 15:17 98.6 F 68 18 120/52 L 100 03/12/17 14:00 74 16 123/51 L 100 03/12/17 12:00 73 16 104/50 L 100 03/12/17 10:37 97.8 F 67 16 109/50 L 100 03/12/17 08:00 98.0 F 73 20 100 03/12/17 07:36 98.0 F 73 20 101/44 L 100 03/12/17 04:00 98.4 F 87 20 120/53 L 100 Weight Weight 160 lb 6 oz Most Recent Monitor Data Heart Rate from ECG 84 NIBP 127/55 NIBP BP-Mean 88 Respiration from ECG 22 SpO2 100 I&O: 03/11/17 03/12/17 03/13/17 06:59 06:59 06:59 Intake Total 2417.1 2203 240 Output Total 2290 2092 Balance 127.1 111 240 Result Diagrams: 03/12/17 05:35 03/12/17 05:35 Additional Labs: Accuchecks 03/12/17 03/12/17 03/11/17 10:53 05:58 21:27 POC Glucose 109 193 H 269 H 03/11/17 17:03 POC Glucose 312 H Laboratory Tests 02/11/17 02/12/17 02/13/17 04:16 05:20 06:20 WBC Hgb 11.6 L 11.4 L PT INR APTT Creatinine 0.96 02/13/17 02/14/17 03/08/17 06:20 05:10 12:52 WBC Hgb 11.5 L 9.3 L PT INR APTT Creatinine 0.99 03/09/17 03/09/17 03/09/17 16:55 16:55 16:55 WBC Hgb 7.9 L PT INR 4.2 H* APTT Creatinine 1.26 H 03/10/17 03/10/17 03/10/17 01:25 01:55 04:10 WBC Hgb 7.2 L 7.1 L PT 41.9 H INR 4.1 H* APTT 53.5 H Creatinine 03/11/17 03/11/17 03/12/17 03:53 03:53 05:35 WBC 12.1 H Hgb 9.4 L PT 29.1 H INR 4.0 2.6 APTT Creatinine Radiology Reviewed by me: Yes (EGD - negative) EKG Reviewed by me: Yes (Tele - SR in 60's) Phys Exam - Physical Examination Constitutional: NAD HEENT: PERRLA, oral pharynx no lesions Neck: no JVD, supple occasional stridor Cardiovascular: RRR Gastrointestinal: soft, non-tender, no distention, positive bowel sounds Musculoskeletal: no edema, pulses present Neurological: normal sensation, moves all 4 limbs Psychiatric: A&O x 3 Skin: normal turgor, cap refill <2 seconds Dx/Plan (1) Chronic respiratory failure with hypoxia Code(s): J96.11 - CHRONIC RESPIRATORY FAILURE WITH HYPOXIA Status: Chronic Comment: Increased dyspnea likely due to vocal cord paralysis, ENT evaluation and ? surgical intervention for correction, baseline currently (2) Dyspnea Code(s): R06.00 - DYSPNEA, UNSPECIFIED Status: Acute Qualifiers: Dyspnea type: dyspnea on exertion Qualified Code(s): R06.09 - Other forms of dyspnea Comment: Multifactorial, likely due vocal cord paralysis (3) Pulmonary embolism Code(s): I26.99 - OTHER PULMONARY EMBOLISM WITHOUT ACUTE COR PULMONALE Status : Acute Qualifiers: Chronicity: acute Acute cor pulmonale presence: without acute cor pulmonale Comment: Chronic anticoagulation with Coumadin, hold Coumadin another 24h, monitor for blood loss, stool guaiac negative x 2, likely resume Coumadin in 24h (4) History of tobacco abuse Code(s): Z87.891 - PERSONAL HISTORY OF NICOTINE DEPENDENCE Status: Chronic Comment: smoking cessation support (5) Primary lung adenocarcinoma Code(s): C34.90 - MALIGNANT NEOPLASM OF UNSP PART OF UNSP BRONCHUS OR LUNG Status: Chronic Comment: S/P Sx and Chemo Rx, supportive measures (6) Supratherapeutic INR Code(s): R79.1 - ABNORMAL COAGULATION PROFILE Status: Acute Comment: Hold Coumadin, repeat INR daily - Plan PT/OT, respiratory therapy, out of bed/ambulate, DVT proph w/SCDs Stable overall -: Continue to monitor H/H -: Likely will resume Coumadin in 24h -: OOB with PT for ambulation -: AM lab: BMP, CBC, PT/INR * Likely home in 24h
--- NOTE | 2017-03-12 15:42 | PRG ---
DATE OF SERVICE: 03/12/2017 SUBJECTIVE: She is status post EGD. Denies any difficulty breathing. OBJECTIVE: VITAL SIGNS: Sats are 100% on 2 liters, respirations 16, temperature 97, and blood pressure 109/50. CHEST: Reveals no wheezing. CARDIAC: Normal S1, S2, no gallops. LABORATORY DATA: INR is 2.6. White count 8000, hemoglobin and hematocrit is 9 and 28. Electrolyte s are normal. IMPRESSION: Stridor secondary to vocal cord, chronic obstructive pulmonary disease, coronary artery disease, and gastrointestinal bleed. PLAN: From a pulmonary standpoint of view, continue neb treatments. Continue supportive care. We will follow.
[2017-03-12] MEDS: HumaLOG 300 UNITS/3 ML VIAL SC PRN ×2 (17:08→20:51)
[2017-03-12] MEDS: ALPRAZolam 0.25 MG TAB PO PRN (21:07)
[2017-03-13] MEDS: ALPRAZolam 0.25 MG TAB PO PRN (02:28)
[2017-03-13 06:24] LABS: Prothrombin Time 19.4 SEC (12.0-14.7)
[2017-03-13 06:37] LABS: Anion Gap 12 mmol/L (10-20); BUN (Urea Nitrogen) 22 mg/dL (9.8-20.1); Calc. Creatinine Clearance 74 mL/min (70-130); Calcium 9.1 mg/dL (7.8-10.44); Carbon Dioxide 23 mmol/L (23-31); Chloride 108 mmol/L (98-107); Estimated GFR-MDRD 70
[2017-03-13] MEDS: Mometasone/Formoterol 120 PUFF INHALER INH SCH (06:59)
[2017-03-13 07:04] LABS: Hematocrit 28.8 % (36.0-47.0); Mean Platelet Volume 6.9 fL (7.4-10.4); Neutrophil 74 % (42-75); Red Blood Cell (RBC) Count 2.93 mill/uL (4.20-5.40); White Blood Cell (WBC) Count 7.4 thou/uL (4.8-10.8)
[2017-03-13] MEDS: Carvedilol 25 MG TAB PO SCH (08:47)
[2017-03-13] MEDS: Amantadine HCl 100 mg Capsule PO SCH (08:47)
[2017-03-13] MEDS: Gabapentin 300 MG CAP PO SCH (08:47)
[2017-03-13] MEDS: Clopidogrel Bisulfate 75 MG TAB PO SCH (08:47)
[2017-03-13] MEDS: Insulin Detemir 100 UNITS/ML 35 UNITS in Pre-Filled Syringe 1 EACH SC SCH (08:53)
[2017-03-13 12:25] VITALS: BP 103/45; TEMP 98.2
[2017-03-13] MEDS: HumaLOG 300 UNITS/3 ML VIAL SC PRN (12:53)
--- NOTE | 2017-03-13 14:02 | PRG ---
DATE OF SERVICE: 03/13/2017 SUBJECTIVE: Ms. Jennifer Tian is doing better this morning. No coughing or wheezing. She had endo scopy done. Appears, she is still having some black stools. LABORATORY DATA: H\T\H stable at 9 and 28, platelet count 152, white count 10,000. INR is 1.6, glu cose is 53. IMPRESSION: 1. Respiratory failure. 2. Pulmonary embolism. 3. Lung cancer. 4. Tobacco abuse. PLAN: From a pulmonary standpoint of view, continue neb treatment, Plavix, Dulera. She can be disc harged home anytime.
--- NOTE | 2017-03-13 14:21 | PDOC.CTH ---
Cardiology Progress Note - Subjective She is doing well. No Evidence of active bleeding. - Objective Vital Signs Temp Pulse Resp BP BP Pulse Ox 03/13/17 13:43 75 14 99 03/13/17 11:41 98.2 F 80 20 103/45 L 97 03/13/17 09:59 79 18 100 03/13/17 08:00 98.1 F 71 20 96 03/13/17 07:28 98.1 F 71 20 122/54 L 96 03/13/17 06:59 71 16 98 03/13/17 06:57 71 16 98 03/13/17 04:00 96.0 F L 73 16 114/50 L 95 03/13/17 03:51 95 Weight 160 lb 6 oz 03/12/17 03/13/17 03/14/17 06:59 06:59 06:59 Intake Total 2203 767.5 800 Output Total 2092 550 700 Balance 111 217.5 100 - Physical Examination General/Neuro: alert & oriented x3, NAD Neck: no JVD present Lungs: CTA, unlabored respirations Heart: RRR Abdomen: NT/ND Extremities: other: (no edema.) - Telemetry Telemetry Rhythm: NSR - Labs Result Diagrams: 03/13/17 05:13 03/13/17 05:13 Troponin/CKMB CK-MB (CK-2) 1.3 ng/mL (0-6.6) 03/09/17 16:55 Troponin I 0.022 ng/mL (< 0.028) 03/10/17 09:56 - Assessment/Plan 1. Chronic respiratory failure with hypoxia - stable 2. Pulmonary embolism - Coumadin still on hold as it was supratherapeutic but at 2.6 today. No source identified on EGD. Pending colonoscopy. 3. Dyspnea - Multifactorial, vocal cord paralysis and anemia. 4. CAD with hx of Drug-coated stent In jul of this year. Resume Plavix as soon as safe from anemia standpoint. 5. Lung adenocarcinoma - S/P Sx and Chemo Rx, 6. History of tobacco abuse PLAN: - Restart warfarin. - Restart Plavix, no aspirin for now until after one year after her stent. - I spoke with GI and no nina on doing colonoscopy as her bleeding has stopped and it was mostly upper GI. Likely related to supratherapeutic INR.
[2017-03-13] MEDS ORDERED: Warfarin Sodium 5 MG TAB PO SCH (14:30)
--- NOTE | 2017-03-13 22:00 | DIS ---
DATE OF ADMISSION: 03/09/2017 DATE OF DISCHARGE: 03/13/2017 DISCHARGE DIAGNOSES: 1. Stridor secondarily to vocal cord paralysis. 2. Chronic hypoxic respiratory failure. 3. Chronic obstructive pulmonary disease without acute exacerbation. 4. Lung adenocarcinoma. 5. Pulmonary embolus, on chronic Coumadin therapy. 6. Acute on chronic normocytic anemia, likely multifactorial with negative esophagogastroduodenosco py. CONSULTATIONS: Dr. Smith with Pulmonology service. Dr. Salvador with GI service. PERTINENT LAB AND X-RAY FINDINGS: Hemoglobin ranged between 7.1 to 9.5. MCV ranged between 95.7 to 99.2. INR ranged between 1.6 to 4.2. Stool Hemoccult x2 on 03/09/[address] x-ray dated 03/09/2017 showed no acute cardiopulmonary process. Soft tissue radiographs of the n paco including 2-views dated 03/09/2017 showed no acute process. EGD dated 03/12/2017 showed negativ e findings. HOSPITAL COURSE: The patient was initially admitted to the intermediate care unit after presenting with increased shortness of breath in the context of known adenocarcinoma of the lung as well as alfred ateral pulmonary embolus and vocal cord paralysis. The patient underwent extensive evaluation inclu ding Pulmonology evaluation with recommendations for evaluation of the vocal cord paralysis. No spe cific evidence to suggest an acute surgical intervention needed; however, the patient was noted with a supratherapeutic INR and decreased hemoglobin value. The patient underwent general evaluation fo r acute blood loss and concern for worsening anemia as an underlying etiology of the patient's worse clau dyspnea. The patient received 2 units of packed red blood cells and was discontinued on Coumad in therapy, pending GI evaluation. Stool Hemoccults were negative x2 and the patient underwent EGD evaluation showing no acute process during the study. The patient will remain off Coumadin therapy as INR decreased appropriately to approximately 1.6 by the time of discharge. The patient exhibited no obvious loss of blood through GI source and maintained a regular oral intake post-EGD. The evelina ent's overall shortness of breath did improve after transfusion and the patient received general pul monary supportive measures through the remainder of the hospital course. Telemetry monitoring showe d sinus mechanism without evidence of acute arrhythmia or dysrhythmia and the patient overall remain ed clinically stable. The patient is ready for discharge on 03/13/2017. DISCHARGE MEDICATIONS: 1. Amantadine 100 mg p.o. t.i.d. 2. Carvedilol 25 mg p.o. b.i.d. 3. Plavix 75 mg 1 tablet p.o. daily. 4. Gabapentin 300 mg p.o. t.i.d. 5. Glargine insulin 35 units subcutaneously b.i.d. 6. Novolin R t.i.d. with meals. 7. Losartan 100 mg 1 tablet p.o. daily. 8. Dulera 200 mcg/5 mcg 1 puff inhaled b.i.d. 9. Crestor 20 mg 1 tablet p.o. daily. 10. Coumadin 5 mg 1 tablet p.o. daily, may resume on 03/15/2017. FOLLOWUP: Follow up with Dr. Abhilash Howard within 7 days of discharge. CONDITION ON DISCHARGE: Stable. ACTIVITY: Ad hema. DIET: Coumadin prudent and heart healthy. SPECIAL INSTRUCTIONS: Repeat PT/INR on 03/14/2017, goal INR of 2 to 3. May resume Coumadin on 02/19. DISPOSITION: Home on 03/13/2017. Total time preparing and coordinating discharge 33 minutes.
--- NOTE | 2017-03-16 09:12 | PFT ---
PATIENT HISTORY: HEIGHT: 63 INCHES WEIGHT: 162 LBS SMOKER: EXSMOKER HOW LON YEARS PACKS PER DAY: 2 PKS PRODUCTIVE COUGH: LUNG DISEASE: COPD PHYSICIAN INTERPRETATION FINAL REPORT: This is a portable study. The FEV1, 0.97 liters which is 45% predicted, FVC is 1.18 liters which is 41% predicted. It appears that the patient did have problems performing the test, both of these flows have decreased since PFT obtained on 04/17/2015. IMPRESSION: A restrictive impairment is suggested. Neuroscience Director Na: EUSEBIA Advisor Advocate Angel Co Founder: EUSEBIA RAZO
== END 2017-03-13 14:23 | disposition home or self-care (01) | DRG 154 ==
LOC: ERS 15:57 → 2NO 20:14 → CCU 23:33 → IMCU/EMU 03-11 20:08
PROVIDERS: ADMIT Internal Medicine; ATTEND Internal Medicine
PROC: 30233N1 Transfusion of Nonautologous Red Blood Cells into Peripheral Vein, Percutaneous Approach (ICD-10-PCS; 2017-03-10)
PROC: 0DJ08ZZ Inspection of Upper Intestinal Tract, Via Natural or Artificial Opening Endoscopic (ICD-10-PCS; principal; 2017-03-12)
DX: J38.00 Paralysis of vocal cords and larynx, unspecified (principal); I26.99 Other pulmonary embolism without acute cor pulmonale; J96.11 Chronic respiratory failure with hypoxia; C34.90 Malignant neoplasm of unspecified part of unspecified bronchus or lung; J44.9 Chronic obstructive pulmonary disease, unspecified; D62 Acute posthemorrhagic anemia; E11.9 Type 2 diabetes mellitus without complications; D64.9 Anemia, unspecified; Z79.4 Long term (current) use of insulin; I25.10 Atherosclerotic heart disease of native coronary artery without angina pectoris; I25.2 Old myocardial infarction; R79.1 Abnormal coagulation profile; R19.5 Other fecal abnormalities; Z90.2 Acquired absence of lung [part of]; Z86.73 Personal history of transient ischemic attack (TIA), and cerebral infarction without residual deficits; Z95.5 Presence of coronary angioplasty implant and graft; Z87.891 Personal history of nicotine dependence; Z86.711 Personal history of pulmonary embolism; Z82.49 Family history of ischemic heart disease and other diseases of the circulatory system; T45.515A Adverse effect of anticoagulants, initial encounter
CPT/HCPCS: 36415; 36416; 36430; 70360; 71010; 80048; 80053; 82274; 82553; 82805; 83010; 83540; 83550; 83615; 83880; 84484; 85007; 85025; 85027; 85060; 85610; 85730; 86850; 86900; 86901; 93005; 93010; 94010; 94640; 94664; 94760; 96361; 96365; 96375; A4216; C9113; J1100; J1644; J1815; J2001; J2250; J2704; J2920; J7050; J7620; P9016

== ENCOUNTER 2017-03-14 09:14 | Inpatient (IN) | payer MEDICARE ==
--- OUTSIDE RECORDS SUMMARY | 2017-03-14 09:17 | XMS | Clinical Summary ---
:1945 Author Organization [facility] Address [address] [place] [phone] Phone Care Team Providers Name Role Phone , Primary Care Provider Unavailable Allergies Active Allergy Reactions Severity Noted Date Comments Crab Nausea And Vomiting 05/20/2015 Current Medications Prescription Sig. Disp. Refills Start Date End Date Status amantadine HCl Take 100 mg by mouth 2 Active (SYMMETREL) 100 mg (two) times daily. capsule gabapentin Take 300 mg by mouth 3 Active (NEURONTIN) 300 MG (three) times daily capsule Only takes BID. carvedilol (COREG) Take 12.5 mg by mouth 2 Active 12.5 MG tablet (two) times daily with breakfast and dinner. aspirin 81 MG EC Take 81 mg by mouth Active tablet daily. insulin glargine Inject 40 Units Active (LANTUS) 100 unit/mL subcutaneously 2 (two) injection times daily Use as directed. insulin 70/30, Inject subcutaneously 2 Active insulin NPH-insulin (two) times daily regular, (NOVOLIN before meals Sliding 70/30, HUMULIN 70/30) scale.. 100 unit/mL (70-30) InPn insulin pen losartan (COZAAR) 25 Take 25 mg by mouth Active MG tablet daily. GRAPE SEED EXTRACT Take 1 tablet by mouth Active (GRAPE SEED ORAL) daily. Active Problems Problem Noted Date Lung cancer (HCC) 05/23/2015 Adenocarcinoma, lung, left 05/05/2015 Overview: [id number] Social History Tobacco Use Types Packs/Day Years Used Date Former Smoker 2 50 Quit: 04/29/2015 Smokeless Tobacco: Never Used Alcohol Use Drinks/Week oz/Week Comments Yes 14 Shots of liquor 8.4 Sex Assigned at Date Recorded Not on file Last Filed Vital Signs Vital Sign Reading Time Taken Blood Pressure 120/56 05/29/2015 7:10 AM EMERGENCY VEHICLE DISPATCHER Pulse 74 05/29/2015 8:50 AM EMERGENCY VEHICLE DISPATCHER Temperature 36.6 C (97.9 F) 05/29/2015 7:10 AM EMERGENCY VEHICLE DISPATCHER Respiratory Rate 20 05/29/2015 8:50 AM EMERGENCY VEHICLE DISPATCHER Oxygen Saturation 96% 05/29/2015 8:50 AM EMERGENCY VEHICLE DISPATCHER Inhaled Oxygen Concentration - - Weight 75.5 kg (166 lb 7.2 oz) 05/29/2015 7:10 AM EMERGENCY VEHICLE DISPATCHER Height 157.5 cm (5' 2") 05/23/2015 10:58 AM EMERGENCY VEHICLE DISPATCHER Body Mass Index 30.44 05/29/2015 7:10 AM EMERGENCY VEHICLE DISPATCHER Plan of Treatment Not on file Results Not on filefrom Last 3 Months
--- OUTSIDE RECORDS SUMMARY | 2017-03-14 09:17 | XMS | Clinical Summary ---
:1945 Author Organization [facility] Address [address] [place] [address] Phone Care Team Providers Name Role Phone Kareem Quevedo Primary Care Provider tel Allergies Not on File Current Medications Not on file Active Problems Not on file Social History Tobacco Use Types Packs/Day Years Used Date Never Assessed Sex Assigned at Date Recorded Not on file Last Filed Vital Signs Not on file Plan of Treatment Not on file Results Not on filefrom Last 3 Months
[2017-03-14 10:18] LABS: #Eosinphils 0.1 thou/uL (0.0-0.7); #Lymphocytes 1.1 thou/uL (1.20-3.40); #Monocytes 0.6 thou/uL (0.11-0.59); #Neutrophils 5.7 thou/uL (1.40-6.50); %Basophils 0.1 % (0.0-1.0); %Eosinophils 1.7 % (0.0-10.0); %Lymphocytes 14.5 % (21.0-51.0); %Monocytes 7.3 % (0.0-10.0); Hematocrit 30.4 % (36.0-47.0); Mean Platelet Volume 7.3 fL (7.4-10.4); White Blood Cell (WBC) Count 7.5 thou/uL (4.8-10.8)
[2017-03-14 10:39] LABS: ALT (SGPT) 28 U/L (8-55); AST (SGOT) 14 U/L (5-34); Alkaline Phosphatase 87 U/L (40-150); Anion Gap 12 mmol/L (10-20); BUN (Urea Nitrogen) 25 mg/dL (9.8-20.1); Bilirubin, Total 0.3 mg/dL (0.2-1.2); Calc. Creatinine Clearance 0 mL/min (70-130); Calcium 9.3 mg/dL (7.8-10.44); Carbon Dioxide 25 mmol/L (23-31); Chloride 104 mmol/L (98-107); Estimated GFR-MDRD 55; Globulin 2.4 g/dL (2.4-3.5); Lipase 16 U/L (8-78); Protein, Total 5.6 g/dL (6.0-8.3)
[2017-03-14 10:50] LABS: Troponin I 0.071 ng/mL (< 0.028)
[2017-03-14] MEDS ORDERED: Enoxaparin Sodium 80 MG/0.8 ML SYRINGE ONE (13:21)
--- NOTE | 2017-03-14 13:48 | CT ---
CTA THORAC UTILIZING IV CONTRAST PE PROTOCOL WITH 3D REFORMATTED IMAGING: Date: 03/14/17 COMPARISON: Prior exam dated 02/14/17. FINDINGS: There is stable mild pleural thickening and subsegmental atelectasis in the left lower lobe. The occ lusive thrombus seen within the left lower lobar pulmonary artery persists. The clot extension into the distal left main pulmonary artery and bifurcation is no longer identified. There is, however, pa rtially occlusive thrombus now seen within the distal right main pulmonary artery extending into lob ar and segmental branches of the right upper, right middle, and right lower lobe. There are patchy o pacities within the superior segment of the right lower lobe and posterior right upper lobe. There i s postsurgical change of left upper lobe lobectomy. Small pulmonary nodule within the posterior righ t lower lobe is stable. Calcified granuloma in the right lower lobe is stable. Visualized upper abdomen is unremarkable. IMPRESSION: 1. New, partially occlusive thrombus seen within the lobar segment of branches of the right lung wi th patchy opacity seen within the posterior aspect of the right upper lobe which may reflect a small peripheral pulmonary infarction. Chronic thrombus is present in the left lower lobar pulmonary courtney ry. 2. Peristent ground-glass opacity within superior segment of the right lower lobe. Findings were called to Dr. Rolle at 1300 hours on 03/14/17. CODE CR. POS: KEVIN
[2017-03-14] MEDS ORDERED: ISOVUE-370 76%-LOCM 1 ML ONE (14:09)
[2017-03-14 14:24] LABS: Bilirubin Negative (Negative); Blood, Urine Trace (Negative); Glucose, Urine (Dipstick) 250 mg/dL (Negative); Ketone, Urine Negative (Negative); Nitrite Negative (Negative); Protein, Urine (Dipstick) Negative (Neg-Trace); Urobilinogen 0.2 mg/dL (0.2-1.0)
[2017-03-14 14:26] LABS: Bacteria/HPF 4+ HPF (None Seen); Hyaline Casts/LPF 0-3 HYALINE CAST LPF (0-3 Hyaline); Squamous Epithelial None Seen HPF (0-3)
[2017-03-14 15:27] LABS: Troponin I 0.076 ng/mL (< 0.028)
[2017-03-14] MEDS ORDERED: Ondansetron HCl/PF 4 MG/2 ML Vial IVP PRN ×2 (16:33→17:11)
[2017-03-14] MEDS ORDERED: Ondansetron ODT 4 MG TAB SL PRN (16:33)
[2017-03-14] MEDS ORDERED: Acetaminophen 325 MG TAB PO PRN (16:33)
[2017-03-14 16:35] VITALS: BMI 28.2
[2017-03-14] MEDS ORDERED: cloNIDine HCl 0.1 MG TAB PO PRN (17:11)
[2017-03-14] MEDS ORDERED: Acetaminophen 500 MG TAB PO PRN (17:11)
[2017-03-14] MEDS ORDERED: Ondansetron ODT 4 MG TAB PO PRN (17:11)
--- NOTE | 2017-03-14 20:04 | HP ---
DATE OF ADMISSION: 03/14/2017 PRIMARY CARE PHYSICIAN: Abhilash Howard M.D. PRIMARY INSTRUCTIONAL SUPPORT SPECIALIST: Dr. Smith. CHIEF COMPLAINT: Shortness of breath. HISTORY OF PRESENT ILLNESS: This is a 71-year-old female who presents to [facility] after recent discharge on 03/13/2017 after recent hospital stay from 03/09/2017- for increasing stridor and dyspnea, likely multifactorial in conjunction with vocal cord pa ralysis and chronic hypoxemic respiratory failure. The patient also underwent evaluation for acute on chronic anemia including upper endoscopy showing no acute or active bleeding sites. Patient rece ived 2 units of packed red blood cells with serial H\T\H monitoring showing overall stable values pr ior to discharge on 03/13/2017. The patient also with longstanding history of recurrent pulmonary e mbolus in the context of known lung adenocarcinoma, previously treated with Lovenox and Coumadin. T he patient was evaluated on 03/09/2017 with elevated INR of 4.2. The patient was held on Coumadin t herapy throughout her hospital course with plans to resume Coumadin on 03/15/2017 due to concern for recurrent GI bleeding. The patient states she had increasing shortness of breath and decreased exe rcise tolerance after discharge 03/13/2017 and became concerned. Her prompted her to seek m edical attention and the patient was brought to the emergency room for evaluation. The patient does state a longstanding history of chronic hypoxemic respiratory failure on chronic oxygen supplementa tion at 2 liters per minute by nasal cannula. The patient denies any specific increased use of oxyg en supplementation; however, had subjective sensation of increasing air hunger. The patient denies any chest pain, fever, hemoptysis, chest trauma or fall. In the emergency room, the patient underwe nt general evaluation including CT angiogram of the chest showing questionable new partially occlusi ve thrombus in the lobar segment of branches of the right lung consistent with pulmonary embolus. C hronic thrombus is noted in the left lower lobar pulmonary artery. The patient received Lovenox 1 m g per kilogram subcutaneously x1 dose and was transferred to the telemetry unit for evaluation. PAST MEDICAL HISTORY: 1. Chronic vocal cord paralysis with stridor. 2. Acute on chronic normocytic anemia, questionable GI bleed secondary to questionable GI bleed wit h negative EGD on 03/12/2017. 3. Chronic obstructive pulmonary disease. 4. Lung adenocarcinoma, status post chemotherapy and lung resection. 5. History of pulmonary embolus on chronic anticoagulation with Coumadin. 6. Coronary artery disease status post myocardial infarction with cardiac stent placement. 7. Diabetes mellitus type 2, insulin requiring. PAST SURGICAL HISTORY: 1. Status post left upper lobectomy secondary to lung adenocarcinoma. 2. Status post cardiac stent placement. 3. Status post endoscopy. 4. Status post MediPort placement to the right chest. CURRENT MEDICATIONS: 1. Amantadine 100 mg 1 tablet p.o. t.i.d. 2. Carvedilol 25 mg 1 tablet p.o. b.i.d. 3. Plavix 75 mg 1 tablet p.o. daily. 4. Gabapentin 300 mg p.o. t.i.d. 5. Glargine insulin 35 units subcutaneously b.i.d. 6. Novolin R t.i.d. with meals. 7. Crestor 20 mg 1 tablet p.o. daily. 8. Coumadin 5 mg 1 tablet p.o. daily. ALLERGIES: CRAB MEAT. FAMILY HISTORY: No inheritable diseases per patient report. SOCIAL HISTORY: The patient is , residing in [place], [place]. Accompanied by her spouse in the hospital. No current alcohol, tobacco or illicit drug use. Remote tobacco use. REVIEW OF SYSTEMS: The following complete review of systems was negative, unless otherwise mentione d in the HPI or below: Constitutional: Weight loss or gain, ability to conduct usual activities. Skin: Rash, itching. Eyes: Double vision, pain. ENT/Mouth: Nose bleeding, neck stiffness, pain, tenderness. Cardiovascular: Palpitations, dyspnea on exertion, orthopnea. Respiratory: Shortness of breath, wheezing, cough, hemoptysis, fever or night sweats. Gastrointestinal: Poor appetite, abdominal pain, heartburn, nausea, vomiting, constipation, or diar david. Genitourinary: Urgency, frequency, dysuria, nocturia. Musculoskeletal: Pain, swelling. Neurologic/Psychiatric: Anxiety, depression. Allergy/Immunologic: Skin rash, bleeding tendency. Otherwise negative except as stated per HPI. PHYSICAL EXAMINATION: VITAL SIGNS: On admission, blood pressure 155/73, pulse 86, respiratory rate 18, temperature 98.1 degrees Fahrenheit, O2 saturation 93% on 2 liters per minute by nasal cannula. GENERAL APPEARANCE: This is a 71-year-old female, alert and oriented x3, pleasant, smilin g, in no acute distress. HEENT: Pupils are equal, round, and reactive to light and accommodation. Extraocular muscles are i ntact. No scleral icterus, no conjunctival injection. Nares patent. OP is clear. Teeth in good r epair. NECK: Supple, no cervical adenopathy, no thyromegaly, no carotid bruits, no JVD appreciated. Cervi kyara spine with full active and passive range of motion. CHEST: Lungs are clear to auscultation bilaterally. Right upper chest wall with MediPort in place. CARDIOVASCULAR: S1 and S2 without noted murmur. ABDOMEN: Obese, soft, nontender, nondistended. Bowel sounds are positive in all four quadrants. T here is no hepatosplenomegaly, no abdominal bruits, no rebound or guarding appreciated. EXTREMITIES: Warm and dry with fair turgor. No clubbing, cyanosis or asymmetric edema appreciated. Pulses palpable distally at the dorsalis pedis, posterior tibial, and popliteal arteries bilateral ly. Capillary refill less than 2 seconds. NEUROLOGIC: Cranial nerves II-XII are grossly intact. No focal or lateralizing signs appreciated. PERTINENT LABORATORY DATA AND X-RAY FINDINGS: Sodium 136, potassium 4.7, chloride 104, CO2 of 25, B UN 25, creatinine 1.0. Estimated GFR 55, glucose 235, calcium 9.3. LFTs within normal limits. Tro ponin I 0.071-0.076. BNP 41, albumin 3.2, and lipase 16. CBC showed a white blood cell count of 7. 5, hemoglobin 10, hematocrit 30, and platelet count 157 with 76% neutrophils. Stool Hemoccult negat melissa x1, 03/14/2017. CT angiogram of the chest dated 03/14/2017 showed a new partially occlusive thr ombus in the lobar segment of the branches of the right lung with patchy opacity in the posterior as pect of the right upper lobe. Chronic thrombus in the left lower lobar pulmonary artery. EKG dated 03/14/2017 by my interpretation shows a sinus mechanism with heart rates in the 90s. Normal R-wave progression noted in the precordial leads. Normal axis. No acute ST-T wave changes appreciated. ASSESSMENT AND PLAN: 1. Question of acute on chronic bilateral pulmonary emboli. The patient will be admitted to the te lemetry unit. We will continue Lovenox 1 mg per kilogram subcutaneously q.12 hours. Resume Coumadi n 5 mg p.o. daily. Check PT/INR currently and in the a.m. Continue oxygen supplementation to maint ain O2 saturations greater than or equal to 90%. We will consult Pulmonology Service for any furthe r recommendations and evaluation. 2. Chronic hypoxemic respiratory failure. We will continue general pulmonary supportive measures. Continue oxygen supplementation to maintain O2 saturations greater than or equal to 90%. DuoNeb q. 4 hours p.r.n. 3. Acute on chronic normocytic anemia, stable currently. We will continue serial hemoglobin trend and clinical monitoring. No current evidence to suggest acute blood loss. esophagogastroduodenosco py performed on 03/12/2017 showed no evidence for active bleeding. Continue Pepcid 20 mg p.o. b.i.d . 4. Diabetes mellitus type 2, insulin requiring. Resume home insulin regimen with Levemir 35 units subcutaneously b.i.d. Insulin sliding scale for reflexive coverage. ADA diet. 5. Chronic vocal cord paralysis, stable currently. The patient with chronic stridor. No evidence of acute decompensation. 6. Prophylaxis. Sequential compression devices while in bed, Pepcid 20 mg p.o. b.i.d. Check stool guaiacs x3. 7. Code status is FULL. Surrogate medical decision maker is patient's spouse.
[2017-03-14] MEDS ORDERED: Enoxaparin Sodium 80 MG/0.8 ML SYRINGE SC SCH (21:00)
[2017-03-14] MEDS ORDERED: Non-Formulary Item 1 EACH (Insulin Glargine,Hum.Rec.Anlog 35 UNIT) SQ SCH (21:00)
[2017-03-14] MEDS: Amantadine HCl 100 mg Capsule PO SCH (21:26)
[2017-03-14] MEDS: Gabapentin 300 MG CAP PO SCH (21:27)
[2017-03-14] MEDS: Famotidine 20 MG TAB PO SCH (21:27)
[2017-03-14] MEDS: Carvedilol 25 MG TAB PO SCH (21:27)
[2017-03-14] MEDS: Insulin Detemir 100 UNITS/ML 35 UNITS in Pre-Filled Syringe 1 EACH SC SCH (21:28)
[2017-03-15 01:48] LABS: Prothrombin Time 15.3 SEC (12.0-14.7)
[2017-03-15] MEDS: Gabapentin 300 MG CAP PO SCH ×3 (09:25→21:36)
[2017-03-15] MEDS: Famotidine 20 MG TAB PO SCH ×2 (09:25→21:36)
[2017-03-15] MEDS: Amantadine HCl 100 mg Capsule PO SCH ×3 (09:25→21:36)
[2017-03-15] MEDS: Clopidogrel Bisulfate 75 MG TAB PO SCH (09:25)
[2017-03-15] MEDS: Enoxaparin Sodium 80 MG/0.8 ML SYRINGE SC SCH ×2 (09:26→21:37)
[2017-03-15] MEDS: Carvedilol 25 MG TAB PO SCH ×2 (09:26→21:36)
[2017-03-15] MEDS: Insulin Detemir 100 UNITS/ML 35 UNITS in Pre-Filled Syringe 1 EACH SC SCH ×2 (09:27→21:37)
--- NOTE | 2017-03-15 11:45 | PDOC.PN ---
- Subjective Encounter Start Date: 03/15/17 Encounter Start Time: 11:20 Subjective: Feels ok overall. Still SOB with short-distance ambulation. No hemoptysis -: or blood in stool. - Objective Resuscitation Status: Resuscitation Status FULL:Full Resuscitation MAR Reviewed: Yes Vital Signs & Weight: Vital Signs (12 hours) Temp Pulse Resp BP Pulse Ox 03/15/17 04:00 98.9 F 78 20 141/60 H 96 03/15/17 00:00 99.2 F 90 20 138/95 H 98 Weight Weight 160 lb 14.4 oz I&O: 03/14/17 03/15/17 03/16/17 06:59 06:59 06:59 Intake Total 240 Output Total 1100 Balance -860 Result Diagrams: 03/15/17 01:31 03/15/17 01:31 Additional Labs: Laboratory Tests 03/14/17 03/14/17 03/15/17 09:54 09:54 01:31 Hgb 10.0 L PT 15.3 H INR 1.2 Creatinine 1.00 EKG Reviewed by me: Yes (Tele - SR in 70's) Phys Exam - Physical Examination Constitutional: NAD HEENT: PERRLA, oral pharynx no lesions Neck: no JVD, supple few scattered coarse sounds Cardiovascular: RRR Gastrointestinal: soft, non-tender, no distention, positive bowel sounds Neurological: normal sensation, moves all 4 limbs Psychiatric: A&O x 3 Skin: normal turgor, cap refill <2 seconds Dx/Plan (1) Dyspnea Code(s): R06.00 - DYSPNEA, UNSPECIFIED Status: Acute Qualifiers: Dyspnea type: dyspnea on exertion Qualified Code(s): R06.09 - Other forms of dyspnea Comment: Multifactorial, likely due vocal cord paralysis, appears at baseline (2) Pulmonary embolism Code(s): I26.99 - OTHER PULMONARY EMBOLISM WITHOUT ACUTE COR PULMONALE Status : Acute Qualifiers: Chronicity: acute Acute cor pulmonale presence: without acute cor pulmonale Comment: Chronic anticoagulation with Coumadin but INR subtherapeutic 1.2, continue Lovenox bridging and follow clinically (3) Chronic respiratory failure with hypoxia Code(s): J96.11 - CHRONIC RESPIRATORY FAILURE WITH HYPOXIA Status: Chronic Comment: Increased dyspnea likely due to vocal cord paralysis in conjunction with PE's, COPD, continue supportive care, bronchodilators, O2 supplementation (4) H/O: GI bleed Code(s): Z87.19 - PERSONAL HISTORY OF OTHER DISEASES OF THE DIGESTIVE SYSTEM Status: Chronic Comment: Due to DORIAN arango, EGD 03/12 negative, continue serial H/H and stool monitoring given group home anticoagulation (5) Asymptomatic bacteriuria Code(s): R82.71 - BACTERIURIA Status: Suspected Comment: Asymptomatic currently, hold abx coverage and monitor for sx - Plan social professionals, respiratory therapy, out of bed/ambulate, DVT proph w/SCDs Continue Lovenox 70mg sc q12h -: Continue Coumadin 5mg po daily -: Pulmonology consultation -: Add Dulera 1 puff BID -: AM lab: H/H and BMP * .
--- NOTE | 2017-03-15 13:53 | CON ---
DATE OF CONSULTATION: 03/15/2017 CONSULTING PHYSICIAN: Dr. Nur from the hospitalist group. REASON FOR CONSULTATION: Pulmonary emboli. HISTORY OF PRESENT ILLNESS: The patient is a 71-year-old female with a complex medical history. She was hospitalized in [place] between 03/09/2017 and for increasing stridor and shortness of breath. She has a history of vocal cord paralysis which is followed by Dr. Aman gaspar in [place]. She was having difficulty with anemia during her last admission, she was seen and evaluated by Dr. Venkatesh Salvador who performed an upper endoscopy, which was unrevealing. She was discharged home on 03/13, but came back yesterday because she was concerned about melena and continued shortness of breath. She had been discharged with instructions is not to take her Coumadin until INR was about 1.6 due to the risk of recurrent GI bleeding. She underwent a repeat CT pulmonary angiogram yesterday, which showed new partially occlusive thrombi in the lobar segments of the right lung consistent with new pulmonary emboli. PAST MEDICAL HISTORY: 1. Vocal cord paralysis. 2. Chronic anemia. 3. Pulmonary emboli. 4. Chronic obstructive pulmonary disease. 5. Lung cancer, requiring left upper lobectomy by Dr. Henley in [place]. 6. Pulmonary embolism. 7. Coronary artery disease. 8. Diabetes mellitus. PAST SURGICAL HISTORY: 1. Left upper lobectomy. 2. Coronary stent placement. 3. EGD. 4. MediPort placement. MEDICATIONS PRIOR TO ADMISSION: Coumadin 5 mg daily, amantadine 100 mg t.i.d., carvedilol 25 mg b.i.d., Plavix 75 mg daily, gabapentin 300 mg t.i.d., glargine insulin 35 units b.i.d., Novolin insulin t.i.d. with meals, Crestor 20 mg daily. ALLERGIES: Crab meat. SOCIAL HISTORY: Nonsmoker, but did smoke remotely in the past. She does not consume alcohol. REVIEW OF SYSTEMS: She claims that she is having melena. She has had some double vision, some rash, itching. She has poor appetite, chronic abdominal pain, and chronic shortness of breath. PHYSICAL EXAMINATION: VITAL SIGNS: Temperature 98.9, pulse 78, respirations 20, O2 sat 96% on 3 liters, blood pressure 141/60. GENERAL: She is awake and alert and in no profound distress. HEENT: Unremarkable. NECK: Supple without adenopathy or JVD. She has expiratory noises over vocal cords. LUNGS: Clear to auscultation bilaterally without wheezing. CARDIAC: S1, S2 regular. ABDOMEN: Soft, nontender. EXTREMITIES: Without clubbing, cyanosis, or edema. LABORATORY DATA: White blood cell count 7.5, hemoglobin 10, hematocrit 30.4, platelet count 157. INR 1.2. Sodium 136, potassium 4.7, chloride 104, CO2 of 25, BUN 25, creatinine 1.0, glucose 235. Troponin 0.076. ASSESSMENT: 1. Pulmonary emboli - acute versus chronic. 2. Likely some degree of upper gastrointestinal bleeding. RECOMMENDATIONS: 1. I would consult GI for another opinion to see whether or not the patient may need capsule endoscopy. 2. Carefully continue anticoagulation for the time being with a low threshold to reverse if needed. 3. Ultimately, may need to consider an IVC filter for anticoagulation becomes impossible - I think that would be a last resort. 4. We will discuss with Dr. Smith. DANNI
[2017-03-15] MEDS ORDERED: Warfarin Sodium 5 MG TAB PO SCH (17:00)
[2017-03-15] MEDS: Mometasone/Formoterol 120 PUFF INHALER INH SCH (19:19)
[2017-03-15] MEDS: ALPRAZolam 0.5 MG TAB PO SCH (21:36)
[2017-03-15] MEDS ORDERED: Dextrose 5% in Water 1,000 ML IV PRN (21:51)
[2017-03-15] MEDS ORDERED: Dextrose 50% Abboject 50 ML SYRINGE SLOW IVP PRN (21:51)
[2017-03-15] MEDS: Insulin Regular 300 UNITS/3 ML VIAL SC PRN (22:17)
[2017-03-16 06:06] LABS: Prothrombin Time 14.6 SEC (12.0-14.7)
--- NOTE | 2017-03-16 06:11 | CON ---
DATE OF CONSULTATION: 03/15/2017 CHIEF COMPLAINT: Black stools. HISTORY OF PRESENT ILLNESS: Ms. Tian is a 71-year-old with lung cancer. She has also had downs ry artery disease with stents placed earlier this year and then developed pulmonary embolus. This i s all in top of an episode of GI bleeding, which occurred last year in 01/2016, which required trans fusion and then she had upper and lower endoscopies which were negative and then she had CT enterogr aphy that was negative and then had a tagged red blood cell scan that showed bleeding probably from the small bowel. In January of this year, she was admitted with the pulmonary embolus and I was aske d to comment on her bleeding risk. At that time, she was not bleeding. We felt there was significa nt morbidity and mortality for PEs and therefore she was restarted on anticoagulation, she was alrea dy on anticoagulation with her antiplatelet agent with her recent coronary stents, and ultimately, s he was discharged home with Plavix and warfarin. She was readmitted on 03/09/2017 with worsening dy spnea and wheezing. Ultimately, she was found to have a new partially occlusive thrombus in the winnie g on 03/14/2017. She also had an EEG on 03/12/2017 because she has had a black stool and drop in he moglobin, although she had negative Hemoccult, but the EGD was normal. Now, she is readmitted with shortness of breath. Her hemoglobin was 10 yesterday, 9.6 today, was 9.5 on the , and 9.3 on e , she was just discharged yesterday and readmitted today. She only had one bowel movement. A t this time, she was noted to be heme positive. PAST MEDICAL HISTORY: Notable for history of lung cancer, left lobectomy, COPD, vocal cord paralysi s, [place], coronary stents earlier this year in 07/2016, type 2 diabetes. Pulmonary embolism diag nosed earlier in January and then apparently extending, despite being on anticoagulation therapy, jus t on this admission over the last weekend. PAST SURGICAL HISTORY: Left upper lobectomy, coronary stents, carotid stents, upper and lower endos copy as noted above. FAMILY HISTORY: Negative for GI malignancy. SOCIAL HISTORY: Quit smoking, does not use alcohol or drugs. ALLERGIES: None known. MEDICATIONS ON ADMISSION: Coumadin, Plavix, amantadine, carvedilol, losartan, Lantus, gabapentin, N ovolin. PRESENT MEDICATIONS: Tylenol, Xanax, Symmetrel, Coreg, Colace, Plavix, Lovenox, Pepcid, Neurontin, Apresoline, Zofran. PHYSICAL EXAMINATION: GENERAL: Patient is wheezing, feels fatigued. VITAL SIGNS: Temperature is 98, pulse 78, blood pressure 141/60. LUNGS: Notable for wheezing. CARDIOVASCULAR: Regular rhythm without rubs or murmurs. ABDOMEN: Nontender. LABORATORY DATA: As per HPI. INR was 1.2 on admission. Chemistries: BUN and creatinine are 25 an d 1 yesterday and basic metabolic profile was normal. Liver function tests are normal. ASSESSMENT AND PLAN: Because of the patient's gastrointestinal bleeding, she was found to have a sm all bowel bleed last year. She had negative upper and lower endoscopies. She has had another negat melissa EGD on 03/12/[address] Johnson had recommended that her previous hospitalization last year if she had ongoing bleeding with known small bowel source, the treatment would be transferring her to a [facility] facility with small bowel enteroscopy available. Here, we perform deep enteroscopy as d eep as we could from the upper aspect with a colonoscope last year. There is one nonbleeding arteri ovenous malformation was cauterized, so if she would have ongoing bleeding, she needs to be transfer red to a tertiary care facility. I am not sure that much to be gained by doing a capsule endoscopy of the small bowel if she has active bleeding. The patient with the bigger issue is what to do with her anticoagulation concerning that she has had a clot progression despite being on Coumadin. One wonders if this is a paraneoplastic process. Sh mahogany may benefit better from the low molecular weight options of therapy. This is sometimes the case w ith hypercoagulable state and induced by malignancies. We will defer this decision to her pulmonolo gist and animal sitter. We will follow along with you and no plans for endoscopic intervention here at this time. If the patient has further ongoing bleeding will need to be transferred to a tertiary [facility] facility, where deep enteroscopy is available.
[2017-03-16] MEDS ORDERED: Activase 2 MG VIAL CATH SCH (06:15)
[2017-03-16] MEDS ORDERED: Sterile Water 10 ML VIAL FS SCH (06:15)
[2017-03-16] MEDS: Mometasone/Formoterol 120 PUFF INHALER INH SCH ×2 (07:44→18:59)
--- NOTE | 2017-03-16 10:20 | PRG ---
DATE OF SERVICE: 03/16/2017 SERVICE: Pulmonary Medicine. INTERVAL HISTORY: The patient is doing very well from respiratory standpoint today. She does extra ordinarily well when she is resting. That being said, with any significant activity, she gets horre ndously dyspneic. She has to slow down or stop immediately. This is the thing that brought her in. She has had no significant improvement since she has been here with these events. PHYSICAL EXAMINATION: VITAL SIGNS: Afebrile, pulse 67, blood pressure 122/57, respirations 16, saturation 100% on 2 liter s nasal cannula. GENERAL: Patient is awake, alert, in no apparent distress. LUNGS: There is a prolonged inspiratory phase. No prolonged expiratory phase, wheezing, rhonchi or crackles are appreciated. HEART: Normal rate, regular. ABDOMEN: Soft, nontender, nondistended. Bowel sounds positive. MUSCULOSKELETAL: No cyanosis or clubbing. No pitting in the bilateral lower extremities. NEUROLOGIC: Grossly nonfocal. LABORATORY DATA: Hemoglobin 9.6. Creatinine 1.11. Troponin 0.076 and gently up trending. BNP was previously normal. Occult blood x1 is positive on 03/15/2017 at 9 o'clock in the morning. ASSESSMENT: 1. Acute hypoxic respiratory failure. 2. Acute pulmonary embolism. 3. Stridor secondary to vocal cord paralysis and previous surgical intervention. 4. Chronic obstructive pulmonary disease without current exacerbation. 5. Coronary artery disease. 6. Deconditioning. 7. Anxiety issues. 8. Acute blood loss anemia. PLAN: We are in a very difficult position here. The patient really does require anticoagulation if she can tolerate it. In order to avoid further confusion, we will go ahead and just continue her o n the Lovenox. The Coumadin will be interrupted. Cardiology consultation will be placed though I a m not certain if there is anything they can do under these acute circumstances at this time. I will place a case management consult for the patient to be looking into a longterm placement. I will continue to follow along while the patient remains in-house. Certainly if we need to send her to a tertiary care center for push enteroscopy, it would be reasonable.
[2017-03-16] MEDS: Enoxaparin Sodium 80 MG/0.8 ML SYRINGE SC SCH ×2 (10:38→20:11)
[2017-03-16] MEDS: Insulin Detemir 100 UNITS/ML 35 UNITS in Pre-Filled Syringe 1 EACH SC SCH ×2 (10:39→20:12)
[2017-03-16] MEDS: Clopidogrel Bisulfate 75 MG TAB PO SCH (10:40)
[2017-03-16] MEDS: Amantadine HCl 100 mg Capsule PO SCH ×3 (10:40→20:08)
[2017-03-16] MEDS: Insulin Regular 300 UNITS/3 ML VIAL SC PRN ×2 (10:40→18:34)
[2017-03-16] MEDS: Carvedilol 25 MG TAB PO SCH ×2 (10:40→20:08)
[2017-03-16] MEDS: Famotidine 20 MG TAB PO SCH ×2 (10:40→20:11)
[2017-03-16] MEDS: Gabapentin 300 MG CAP PO SCH ×3 (10:40→20:11)
--- NOTE | 2017-03-16 13:48 | PDOC.PN ---
- Subjective Encounter Start Date: 03/16/17 Encounter Start Time: 13:40 Subjective: f/u for PE on current tx with Lovenox and previously Coumadin. -: Solo therapy with Lovenox recommended per Pulmonology. No acute -: events noted. - Objective Resuscitation Status: Resuscitation Status FULL:Full Resuscitation MAR Reviewed: Yes Vital Signs & Weight: Vital Signs (12 hours) Temp Pulse Resp BP Pulse Ox 03/16/17 12:00 98.6 F 76 18 113/57 L 95 03/16/17 08:00 97.4 F L 72 18 115/55 L 97 03/16/17 07:44 67 16 100 03/16/17 04:00 97.7 F 64 18 122/57 L 97 Weight Weight 158 lb 9.6 oz I&O: 03/15/17 03/16/17 03/17/17 06:59 06:59 06:59 Intake Total 240 1320 360 Output Total 1100 2050 Balance -860 -730 360 Result Diagrams: 03/15/17 01:31 03/15/17 01:31 Additional Labs: Accuchecks 03/16/17 03/16/17 03/15/17 11:14 05:37 21:19 POC Glucose 375 H 184 H 401 H Microbiology 03/15/17 09:05 Stool Stool Occult Blood (MATTY) - Final 03/14/17 10:07 Stool - Pending Stool Occult Blood (MATTY) - Final Laboratory Tests 03/14/17 03/14/17 03/15/17 09:54 09:54 01:31 Hgb 10.0 L PT 15.3 H INR 1.2 Creatinine 1.00 EKG Reviewed by me: Yes (Tele - SR) Phys Exam - Physical Examination Constitutional: NAD HEENT: PERRLA, oral pharynx no lesions Neck: no JVD, supple Respiratory: no wheezing, clear to auscultation bilateral Cardiovascular: RRR Gastrointestinal: soft, non-tender, no distention, positive bowel sounds Musculoskeletal: no edema, pulses present Neurological: normal sensation, moves all 4 limbs Psychiatric: A&O x 3 Skin: normal turgor, cap refill <2 seconds Dx/Plan (1) Dyspnea Code(s): R06.00 - DYSPNEA, UNSPECIFIED Status: Acute Qualifiers: Dyspnea type: dyspnea on exertion Qualified Code(s): R06.09 - Other forms of dyspnea Comment: Multifactorial, likely due vocal cord paralysis, appears at baseline (2) Pulmonary embolism Code(s): I26.99 - OTHER PULMONARY EMBOLISM WITHOUT ACUTE COR PULMONALE Status : Acute Qualifiers: Chronicity: acute Acute cor pulmonale presence: without acute cor pulmonale Comment: Solo tx with Lovenox 70mg sc q12h (3) Chronic respiratory failure with hypoxia Code(s): J96.11 - CHRONIC RESPIRATORY FAILURE WITH HYPOXIA Status: Chronic Comment: Increased dyspnea likely due to vocal cord paralysis in conjunction with PE's, COPD, continue supportive care, bronchodilators, O2 supplementation (4) H/O: GI bleed Code(s): Z87.19 - PERSONAL HISTORY OF OTHER DISEASES OF THE DIGESTIVE SYSTEM Status: Chronic Comment: Due to DORIAN arango, EGD 03/12 negative, continue serial H/H and stool monitoring given prison anticoagulation (5) Asymptomatic bacteriuria Code(s): R82.71 - BACTERIURIA Status: Suspected Comment: Asymptomatic currently, hold abx coverage and monitor for sx - Plan plan discussed w/ family, PT/OT, clinical social work therapist, respiratory therapy, out of bed/ambulate, DVT proph w/SCDs Stable currently -: PT evaluation for functional assessment, considering SNF -: Continue Lovenox 70mg sc q12h -: Monitor for GI bleed and H/H trend -: AM lab: H/H, BMP * .
[2017-03-16] MEDS: ALPRAZolam 0.5 MG TAB PO SCH (20:08)
[2017-03-16 20:14] LABS: Hematocrit 28.1 % (36.0-47.0)
--- NOTE | 2017-03-16 21:19 | PRG ---
DATE OF SERVICE: 03/16/2017 SUBJECTIVE: Ms. Tian is a 71-year-old. She has had no bowel movements today. She remains on Lo venox. OBJECTIVE: VITAL SIGNS: Temperature is 99 to 98, pulse 74, respirations 24, blood pressure 135/73. LUNGS: Clear. HEART: Regular rate and rhythm except for some rhonchi. ABDOMEN: Nontender. LABORATORY DATA: Hemoglobin is 9.6. ASSESSMENT AND PLAN: Stable hemoglobin, no signs of overt bleeding. We will continue to follow.
--- NOTE | 2017-03-17 00:59 | CON ---
CARDIOLOGY CONSULTATION NOTE DATE OF CONSULTATION: 03/16/2017 REASON FOR CONSULTATION: Coronary artery disease, pulmonary emboli and history of GI bleeding. HISTORY OF PRESENT ILLNESS: Ms. Jennifer Tian is a very pleasant patient. She has had multiple pro blems. She has had a coronary stent placed earlier this year and is being maintained on Plavix, she also had gastrointestinal bleeding. She recently was in the hospital with some gastrointestinal bl eeding. She was sent home on Coumadin and Plavix, but she came back in with recurrent shortness of breath on the . She was found to have new thrombus in the lumbar segments of the branches of th e right lung. She has been placed back on Lovenox. She was doing okay now, but still short of bishop th with exertion. No chest pain or pressure. MEDICATIONS: 1. She takes insulin here. 2. Carvedilol. 3. Rosuvastatin. 4. Clopidogrel. 5. Warfarin. 6. She reported to me she is taking enoxaparin, but I do not see that listed. ALLERGIES: CRAB. REVIEW OF SYSTEMS: Constitutional: No significant weight gain or loss. Vision: No changes. Hear ing: No changes. Pulmonary: No cough or wheezing. Gastrointestinal: No nausea, vomiting or diar david. Skin: No rashes. Neurologic: No unilateral weakness or numbness. Psychiatric: No unusual depression or anxiety. Hematologic: No unusual bruising. Genitourinary: No burning with urination. PHYSICAL EXAMINATION: GENERAL: A pleasant 71-year-old woman in no distress. VITAL SIGNS: Blood pressure is 135/63 and pulse 74 regular. LUNGS: Clear. CARDIAC: Normal S1 and normal S2. I do not hear a murmur, rub or gallop. ABDOMEN: Soft and nontender. No hepatosplenomegaly. EXTREMITIES: Warm and dry. No clubbing or cyanosis. There is no edema. HEMATOLOGIC: No unusual bruising. IMAGING DATA: CT scan as above. ASSESSMENT: 1. Coronary disease, stable, previous stent. 2. Recurrent pulmonary embolism. 3. History of gastrointestinal bleeding. PLAN: 1. We will discuss with the casting machine adjuster. She is on Lovenox 70 mg every 12 hours. 2. Continue Plav[address]. Dr. Lou to see the patient tomorrow morning.
[2017-03-17] MEDS: Mometasone/Formoterol 120 PUFF INHALER INH SCH (06:34)
[2017-03-17] MEDS: Insulin Detemir 100 UNITS/ML 35 UNITS in Pre-Filled Syringe 1 EACH SC SCH (09:48)
[2017-03-17] MEDS: Clopidogrel Bisulfate 75 MG TAB PO SCH (09:49)
[2017-03-17] MEDS: Famotidine 20 MG TAB PO SCH (09:49)
[2017-03-17] MEDS: Amantadine HCl 100 mg Capsule PO SCH (09:49)
[2017-03-17] MEDS: Carvedilol 25 MG TAB PO SCH (09:49)
[2017-03-17] MEDS: Gabapentin 300 MG CAP PO SCH (09:49)
[2017-03-17] MEDS: Enoxaparin Sodium 80 MG/0.8 ML SYRINGE SC SCH (09:52)
--- NOTE | 2017-03-17 11:15 | CT ---
CT OF THE ABDOMEN AND PELVIS WITH IV CONTRAST INDICATION: ABDOMINAL PAIN/ TARRY STOOLS. TECHNIQUE: CT images of the abdomen and pelvis were added to the examination after the initial CTA examination of the thorax with contrast was submitted for interpretation. I was made aware of the CT images being added to the study on 03/16/17 at 5 p.m.. COMPARISON: Comparisons are also made with a CT of the chest and abdomen dated 12/10/16. FINDINGS: Small hypodensity involving segment of the right hepatic lobe is stable. The pancreas and adrenal glands are unremarkable. The spleen is unremarkable appearing. The kidneys are normal appearing. There are scattered vascular calcifications involving the abdominopelvic vasculature. There is a mild amount of retained stool within the colon. No drainable fluid collection is evident. There is gas within the bladder. There are degenerative changes seen involving the skeletal structures. There is diffuse osteopenia. No definite acute osseous abnormality is evident. IMPRESSION: 1. Stable small right hepatic lobe density within segment of the right hepatic lobe. 2. Gas within the bladder. Recommend correlation for recent instrumentation. 3. Other chronic findings as above.
[2017-03-17 12:23] VITALS: TEMP 98.6
[2017-03-17] MEDS: Insulin Regular 300 UNITS/3 ML VIAL SC PRN (12:25)
[2017-03-17 12:30] VITALS: BP 113/58
--- NOTE | 2017-03-17 12:43 | DIS ---
DATE OF ADMISSION: 03/14/2017 DATE OF DISCHARGE: 03/17/2017 DISCHARGE DIAGNOSES: 1. Acute on chronic right-sided pulmonary emboli. 2. Acute on chronic hypoxemic respiratory failure secondary to #1. 3. Chronic normocytic anemia, stable. 4. History of suspected gastrointestinal bleed, likely secondary to arteriovenous malformation. 5. Chronic stridor secondary to vocal cord paralysis. 6. Chronic obstructive pulmonary disease without acute exacerbation. 7. History of lung adenocarcinoma, status post left upper lobe resection and chemotherapy. 8. Coronary artery disease status post myocardial infarction with cardiac stent placement on chroni c Plavix. CONSULTATIONS: Dr. Swartz with [facility] Cardiology Service. Dr. Smith with Pulmonology Serv ice. Dr. Orozco with GI Service. PERTINENT LABORATORY DATA AND X-RAY FINDINGS: Troponin ranged between 0.071-0.076. CBC showed hemo globin ranging between 9.3-10.0, MCV 98. Stool Hemoccult positive 1 out of 2 samples today 03/14/20 17 and 03/15/2017. CT of the abdomen and pelvis dated 03/14/2017 showed small hypodensity in the ri ght hepatic lobe. Diffuse osteopenia. Gas within the bladder with prior Rodas catheter. CT angiog martha of the chest dated 03/14/2017 showed new partially occlusive thrombus within the right lobar seg ment branches of the right lung with patchy opacity in the posterior aspect of the right upper lobe. Chronic thrombus present in the left lower lobe pulmonary artery. HOSPITAL COURSE: Patient was admitted to the telemetry unit after presenting with increasing dyspne a in the context of known chronic pulmonary emboli and chronic hypoxemic respiratory failure on frame changer sharlene oxygen supplementation at 2-3 liters per minute by nasal cannula. The patient recently admitted on 03/09/2017 through 03/13/2017 for multifactorial stridor and acute on chronic normocytic anemia with suspected GI blood loss. The patient discharged home on 03/13/2017, returning to the hospital on 03/14/2017 for evaluation of increased dyspnea. CT angiogram of the chest was performed showing questionable new partially occlusive right-sided pulmonary embolus. The patient was noted with subt herapeutic INR at the time of admission on Coumadin therapy and given Lovenox 70 mg subcutaneously q .12 hours. The patient was evaluated by the Pulmonology Service with recommendations to streamline a nticoagulation therapy and discontinue Coumadin with Lovenox therapy. Patient transitioned to Loven ox 110 mg subcutaneously q.24 hours and Coumadin was discontinued. Serial H\T\H monitoring showed o verall stable hemoglobin values during the hospital course without evidence of active GI blood loss. The patient was evaluated by the Palliative Care Service due to multiple comorbid status as well a s evaluated by case management and physical therapy due to severe deconditioning and need for ongoin g skilled care. The patient was deemed an appropriate candidate for ongoing physical therapy and santillan s been approved for [facility] for supervised care. Overall, patient currently baseline fun ctional status with stable vital signs at the time of discharge. The patient ready for discharge on 03/17/2017. DISCHARGE MEDICATIONS: 1. Lovenox 110 mg subcutaneously q.24 hours. 2. Amantadine 100 mg 1 tablet p.o. t.i.d. 3. Carvedilol 25 mg p.o. b.i.d. 4. Plavix 75 mg 1 tablet p.o. daily. 5. Pepcid 20 mg p.o. b.i.d. 6. Gabapentin 300 mg p.o. t.i.d. 7. Glargine insulin 35 units subcutaneously b.i.d. 8. Novolin R t.i.d. with meals. 9. Crestor 20 mg p.o. daily. FOLLOWUP: The patient will follow up with her primary care provider, Dr. Abhilash Howard after discharge from [facility]. The patient will follow up with Dr. Jez Orozco with GI Service an d to call his office for appointment time and date. Patient will follow up with Dr. Gregory Smith with Pulmonology Service and to call his office for appointment time and date. CONDITION ON DISCHARGE: Fair. ACTIVITY: Ad hema. Rolling walker with standby assistance. DIET: Heart healthy and ADA. CODE STATUS: FULL. SPECIAL INSTRUCTIONS: Recommend CBC on 03/19/2017 and biweekly hemoglobin and hematocrits. DISPOSITION: Discharged to [facility], 03/17/2017. Total time preparing and coordinating discharge is 35 minutes.
--- NOTE | 2017-03-17 15:24 | PRG ---
DATE OF SERVICE: 03/17/2017 SERVICE: Pulmonary Medicine. INTERVAL HISTORY: The patient is doing fine from a cardiovascular and respiratory standpoint. She is roughly stable compared to yesterday. There has been no interval change to her condition. Whene pamela she gets up and walks around, she does have fairly significant dyspnea. Most of this is stridor related. PHYSICAL EXAMINATION: VITAL SIGNS: Afebrile, pulse 78, blood pressure 133/62, respirations 21, saturation 91% on 1 liter nasal cannula. GENERAL: The patient is awake and alert. She is in no apparent distress. LUNGS: Excellent air entry with a normal respiration. She has a slightly prolonged inspiratory pha se. Her expiratory phase is minimally prolonged. No wheezing, rhonchi, or crackles are appreciated . When asked to breathe faster, the thing that limits her respiratory rate is actually her inspirat ory phase. HEART: Normal rate, regular. ABDOMEN: Soft, nontender, nondistended. Bowel sounds positive. MUSCULOSKELETAL: No cyanosis or clubbing. No pitting in the bilateral lower extremities. NEUROLOGIC: Grossly nonfocal. LABORATORY DATA: WBC 9.3 yesterday evening. Creatinine 1.55 and trending upward. ASSESSMENT: 1. Acute hypoxic respiratory failure, at baseline. 2. Acute pulmonary embolism, not significantly changed since prior. 3. Stridor secondary to vocal cord paralysis and previous surgical intervention. 4. Chronic obstructive pulmonary disease without current exacerbation. 5. Coronary artery disease. 6. Deconditioning. 7. Anxiety disorder. 8. Acute blood loss anemia secondary to suspected gastrointestinal bleed. PLAN: We will continue full dose anticoagulation. Hopefully, this will be continued for a protract ed period of time (at least an additional 2 months). I will discuss with Dr. Orozco, and Dr. Newton our options moving forward. We will continue to trend her hemoglobin 3 times and if she requires r epeated blood transfusions, push enteroscopy will have to be considered. The vocal cord issue shoul d slowly improve with time. If it does, no interventions will be required, but if things get worse, a temporary tracheostomy may need to be considered to bypass that issue.
== END 2017-03-17 13:36 | disposition swing bed (61) | DRG 175 ==
LOC: ERS 09:14 → 2NO 14:00
PROVIDERS: ADMIT Family Medicine; ATTEND Family Medicine
DX: I26.99 Other pulmonary embolism without acute cor pulmonale (principal); J96.21 Acute and chronic respiratory failure with hypoxia; J38.00 Paralysis of vocal cords and larynx, unspecified; Z99.81 Dependence on supplemental oxygen; E11.9 Type 2 diabetes mellitus without complications; D50.0 Iron deficiency anemia secondary to blood loss (chronic); I27.82 Chronic pulmonary embolism; J44.9 Chronic obstructive pulmonary disease, unspecified; Z85.118 Personal history of other malignant neoplasm of bronchus and lung; Z92.21 Personal history of antineoplastic chemotherapy; Z90.2 Acquired absence of lung [part of]; I25.10 Atherosclerotic heart disease of native coronary artery without angina pectoris; Z95.5 Presence of coronary angioplasty implant and graft; Z79.02 Long term (current) use of antithrombotics/antiplatelets; I25.2 Old myocardial infarction; F41.9 Anxiety disorder, unspecified; R19.5 Other fecal abnormalities; Z79.01 Long term (current) use of anticoagulants; Z79.4 Long term (current) use of insulin; R82.71 Bacteriuria
CPT/HCPCS: 36415; 36416; 71275; 74177; 80053; 81003; 81015; 82274; 82553; 82565; 83690; 83880; 84484; 85014; 85018; 85025; 85049; 85610; 93005; 94664; 96372; A4216; G8978-GP-CL; G8979-GP-CJ; J1650; J1815; J2997

== ENCOUNTER 2017-04-05 10:37 | Outpatient (CLI) | payer MEDICARE ==
--- NOTE | 2017-04-05 12:25 | RAD ---
CHEST PA AND LATERAL: History: 72-year-old female with dyspnea. Comparison: 03-09-17 FINDINGS: Post op changes in the left suprahilar region. Right subclavian catheter and ejection port. Minimal chronic changes in the left chest with some left hemidiaphragm elevation. The right lung appears alfredito ar. No confluent pneumonia, overt edema, or pleural effusion. IMPRESSION: Stable post-operative changes left chest. No acute intrathoracic disease. POS: OFF
== END 2017-04-05 10:38 | disposition home or self-care (01) ==
LOC: RAD 10:37
PROVIDERS: ATTEND Internal Medicine
DX: R06.00 Dyspnea, unspecified (principal); Z98.890 Other specified postprocedural states
CPT/HCPCS: 71020

== ENCOUNTER 2017-04-06 16:39 | Emergency (ER) | payer MEDICARE ==
[2017-04-06 17:46] LABS: #Basophils 0.1 thou/uL (0.0-0.2); #Eosinphils 0.1 thou/uL (0.0-0.7); #Lymphocytes 1.7 thou/uL (1.20-3.40); #Monocytes 0.8 thou/uL (0.11-0.59); #Neutrophils 3.9 thou/uL (1.40-6.50); %Eosinophils 1.1 % (0.0-10.0); %Lymphocytes 26.6 % (21.0-51.0); %Monocytes 11.6 % (0.0-10.0); Hematocrit 36.3 % (36.0-47.0); Red Blood Cell (RBC) Count 3.65 mill/uL (4.20-5.40); White Blood Cell (WBC) Count 6.5 thou/uL (4.8-10.8)
--- NOTE | 2017-04-06 18:15 | RAD ---
PORTABLE CHEST ONE VIEW: 04/06/17 at 5:48 p.m. HISTORY: Altered mental status. Right sided headache. FINDINGS: Comparison is made with exam of previous day. Postop changes in the left suprahilar region are again seen with stable mild loss of volume in the l eft hemithorax. The heart size is stable. The lungs are otherwise well expanded without confluent ar eas of consolidation, pneumothorax or pleural effusions. Right sided Port-A-Cath remains in place. IMPRESSION: No acute process. POS: KEVIN
[2017-04-06 18:17] LABS: ALT (SGPT) 18 U/L (8-55); AST (SGOT) 12 U/L (5-34); Alkaline Phosphatase 84 U/L (40-150); Anion Gap 13 mmol/L (10-20); BUN (Urea Nitrogen) 28 mg/dL (9.8-20.1); Bilirubin, Total 0.2 mg/dL (0.2-1.2); Calc. Creatinine Clearance 0 mL/min (70-130); Calcium 10.4 mg/dL (7.8-10.44); Carbon Dioxide 24 mmol/L (23-31); Chloride 104 mmol/L (98-107); Estimated GFR-MDRD 40; Globulin 3.1 g/dL (2.4-3.5); Protein, Total 7.2 g/dL (6.0-8.3)
[2017-04-06 18:20] LABS: Troponin I 0.017 ng/mL (< 0.028)
--- NOTE | 2017-04-06 18:52 | CT ---
CT BRAIN WITHOUT CONTRAST: 04/06/17 HISTORY: Altered mental status. Headache, decreased motor strength, illegible handwriting. FINDINGS: Comparison is made with the exam of 02/07/17. Changes of cortical atrophy, chronic small vessel ischemic disease and old lacunar infarctions again seen. The ventricular size is stable and the basilar cisterns patent. No evidence of acute infarct, hemorrhage, midline shift or abnormal extra-axial fluid collections ar e seen. The bony calvarium is intact. The visualized paranasal sinuses and mastoid air cells are wel l aerated. IMPRESSION: No CT evidence of acute intracranial process. POS: [facility]
--- OUTSIDE RECORDS SUMMARY | 2017-04-12 09:28 | XMS | Clinical Summary ---
:1945 Author Organization [facility] Address [address] [place] [id number] Phone Care Team Providers Name Role Phone [...] Lung cancer (HCC) 05/23/2015 Adenocarcinoma, lung, left (HCC) 05/05/2015 Overview: [id number] Social History Tobacco Use Types Packs/Day Years Used Date Former Smoker 2 50 Quit: 04/29/2015 Smokeless Tobacco: Never Used Alcohol Use Drinks/Week oz/Week Comments Yes 14 Shots of liquor 8.4 Sex Assigned at Date Recorded Not on file Last Filed Vital Signs Vital Sign Reading Time Taken Blood Pressure 120/56 05/29/2015 7:10 AM PRACTICING DERMATOLOGIST Pulse 74 05/29/2015 8:50 AM PRACTICING DERMATOLOGIST Temperature 36.6 C (97.9 F) 05/29/2015 7:10 AM PRACTICING DERMATOLOGIST Respiratory Rate 20 05/29/2015 8:50 AM PRACTICING DERMATOLOGIST Oxygen Saturation 96% 05/29/2015 8:50 AM PRACTICING DERMATOLOGIST Inhaled Oxygen Concentration - - Weight 75.5 kg (166 lb 7.2 oz) 05/29/2015 7:10 AM PRACTICING DERMATOLOGIST Height 157.5 cm (5' 2") 05/23/2015 10:58 AM PRACTICING DERMATOLOGIST Body Mass Index 30.44 05/29/2015 7:10 AM PRACTICING DERMATOLOGIST Plan of Treatment Not on file Results Not on filefrom Last 3 Months
--- OUTSIDE RECORDS SUMMARY | 2017-04-12 09:28 | XMS | Clinical Summary ---
:1945 Author Organization [facility] Address [address] [place] [address] Phone Care Team Providers Name Role Phone [...]
== END 2017-04-06 19:20 | disposition home or self-care (01) ==
LOC: ERS 16:39
DX: R53.1 Weakness (principal); I25.2 Old myocardial infarction; Z86.73 Personal history of transient ischemic attack (TIA), and cerebral infarction without residual deficits; E11.9 Type 2 diabetes mellitus without complications; E78.5 Hyperlipidemia, unspecified; J44.9 Chronic obstructive pulmonary disease, unspecified; Z87.891 Personal history of nicotine dependence; Z79.4 Long term (current) use of insulin; Z79.899 Other long term (current) drug therapy; Z86.711 Personal history of pulmonary embolism; Z86.718 Personal history of other venous thrombosis and embolism
CPT/HCPCS: 36415; 70450; 71010; 80053; 82553; 83880; 84484; 85025; 93005

== ENCOUNTER 2017-04-21 08:32 | Inpatient (IN) | payer MEDICARE ==
--- OUTSIDE RECORDS SUMMARY | 2017-04-21 08:46 | XMS | Clinical Summary ---
:1945 Author Organization [facility] Address [address] [place] [phone] Phone Care Team Providers Name Role Phone [...] Taken Blood Pressure 120/56 05/29/2015 7:10 AM [employer] Pulse 74 05/29/2015 8:50 AM [employer] Temperature 36.6 C (97.9 F) 05/29/2015 7:10 AM [employer] Respiratory Rate 20 05/29/2015 8:50 AM [employer] Oxygen Saturation 96% 05/29/2015 8:50 AM [employer] Inhaled Oxygen Concentration - - Weight 75.5 kg (166 lb 7.2 oz) 05/29/2015 7:10 AM [employer] Height 157.5 cm (5' 2") 05/23/2015 10:58 AM [employer] Body Mass Index 30.44 05/29/2015 7:10 AM [employer] Plan of Treatment Not on file Results Not on filefrom Last 3 Months
[2017-04-21 09:06] LABS: Mechanical Tidal Volume 500 ml; Mode SIMV; Modified Allen's Test POSITIVE; Oxyhemoglobin 97.6 % (94.0-97.0); Sodium 135 mmol/L (135-148); Spontaneous Rate 5 min; Vent YES
[2017-04-21 09:26] LABS: PTT 31.3 SEC (22.9-36.1); Prothrombin Time 14.9 SEC (12.0-14.7)
--- NOTE | 2017-04-21 09:29 | RAD ---
PORTABLE AP CHEST X-RAY: 04/21/2017 HISTORY: Tracheostomy device. Follow-up evaluation. Respiratory distress. COMPARISON: 04/21/2017 at 0626 hours. FINDINGS: Again noted is the tracheostomy device in place. Right subclavian CT injectable MediPort catheter r emains in place. Surgical clips are again seen overlying the left hilar region. There is persisten t elevation of the left hemidiaphragm with volume loss at the left lung base. Lungs are otherwise c lear. Cardiac silhouette and pulmonary vasculature are within normal limits. There has been no in terval change compared to the prior exam. IMPRESSION: 1. Persistent elevation of the left hemidiaphragm with volume loss at left lung base. 2. Post-surgical changes left hilar region, unchanged, with absence of a portion of the left posteri or 5th rib. 3. No acute cardiopulmonary process. 4. Chest is stable compared to the prior exam. POS: [facility]
[2017-04-21] MEDS ORDERED: Ondansetron ODT 4 MG TAB SL PRN (10:26)
[2017-04-21] MEDS ORDERED: Sodium Chloride 0.9% 1,000 ML IV SCH (10:26)
[2017-04-21] MEDS ORDERED: Ondansetron HCl/PF 4 MG/2 ML Vial IVP PRN (10:26)
[2017-04-21] MEDS ORDERED: Acetaminophen 325 MG TAB PO PRN (10:26)
[2017-04-21 10:27] VITALS: BMI 28.0
[2017-04-21 14:48] LABS: Troponin I Less than 0.010 ng/mL (< 0.028)
[2017-04-21] MEDS ORDERED: Dextrose 50% Abboject 50 ML SYRINGE IVP PRN (15:45)
[2017-04-21] MEDS ORDERED: Dextrose 5% in Water 1,000 ML IV PRN (15:45)
[2017-04-21 17:10] LABS: Troponin I 0.012 ng/mL (< 0.028)
[2017-04-21] MEDS: Sodium Chloride 0.45% 1,000 ML IV SCH (19:57)
[2017-04-21] MEDS: Lorazepam 1 MG TAB PO PRN (21:31)
[2017-04-21] MEDS: Gabapentin 300 MG CAP PO SCH (21:31)
[2017-04-21] MEDS: Carvedilol 25 MG TAB PO SCH (21:31)
[2017-04-21] MEDS: Famotidine 20 MG TAB PO SCH (21:31)
[2017-04-21] MEDS: Docusate 100 MG CAP PO SCH (21:32)
[2017-04-21] MEDS: Amantadine HCl 100 mg Capsule PO SCH (21:32)
[2017-04-22] MEDS: Insulin Regular 300 UNITS/3 ML VIAL SC PRN ×4 (00:50→20:27)
[2017-04-22 04:07] LABS: #Eosinphils 0.1 thou/uL (0.0-0.7); #Lymphocytes 1.1 thou/uL (1.20-3.40); #Neutrophils 9.3 thou/uL (1.40-6.50); %Basophils 0.1 % (0.0-1.0); %Eosinophils 0.6 % (0.0-10.0); %Lymphocytes 9.9 % (21.0-51.0); %Monocytes 8.4 % (0.0-10.0); Hematocrit 25.4 % (36.0-47.0); Mean Platelet Volume 6.8 fL (7.4-10.4); Red Blood Cell (RBC) Count 2.58 mill/uL (4.20-5.40); White Blood Cell (WBC) Count 11.4 thou/uL (4.8-10.8)
[2017-04-22 04:23] LABS: Anion Gap 15 mmol/L (10-20); BUN (Urea Nitrogen) 20 mg/dL (9.8-20.1); Calc. Creatinine Clearance 81 mL/min (70-130); Calcium 9.3 mg/dL (7.8-10.44); Carbon Dioxide 28 mmol/L (23-31); Chloride 97 mmol/L (98-107); Estimated GFR-MDRD 80
--- NOTE | 2017-04-22 08:02 | PRG ---
DATE OF SERVICE: 04/22/2017 Ms. Tian did well overnight. She has no complaints. PHYSICAL EXAMINATION: VITAL SIGNS: Heart rate 84. Blood pressure 134/55, respiratory rate 20. LUNGS: She has mild wheezes bilaterally. I suspect much of this is upper airway. IMPRESSION: 1. Status post occlusion of her tracheostomy leading to respiratory distress and transferred here. Her tracheostomy was occluded with blood. A new inner cannula has been placed. She has had no dif ficulty since then. 2. Anticoagulation for thromboembolic disease. She has been on Lovenox at the skilled unit. I rec ommending gradually phasing her warfarin back in starting today with daily protimes. 3. Multiple sclerosis. 4. Bilateral vocal cord dysfunction leading to her tracheostomy. 5. Hypertension. PLAN: Transfer her over to the Intermediate Care Unit. Continue with humidified oxygen. I will ad d steroids for a few days to see if this helps with the wheezing noted on exam today.
[2017-04-22] MEDS ORDERED: Sterile Water 10 ML ONE (08:54)
[2017-04-22] MEDS ORDERED: FLU VACC TS2017-18 (>65YR) 0.5 ML SYRINGE IM ONE (09:00)
[2017-04-22] MEDS: Losartan Potassium 25 MG TAB PO SCH (09:05)
[2017-04-22] MEDS: Famotidine 20 MG TAB PO SCH ×2 (09:05→20:28)
[2017-04-22] MEDS: Gabapentin 300 MG CAP PO SCH ×3 (09:05→20:28)
[2017-04-22] MEDS: Docusate 100 MG CAP PO SCH ×2 (09:05→20:28)
[2017-04-22] MEDS: Clopidogrel Bisulfate 75 MG TAB PO SCH (09:05)
[2017-04-22] MEDS: Carvedilol 25 MG TAB PO SCH ×2 (09:05→20:28)
[2017-04-22] MEDS: Amantadine HCl 100 mg Capsule PO SCH ×3 (09:06→20:28)
[2017-04-22 09:42] LABS: Prothrombin Time 14.7 SEC (12.0-14.7)
[2017-04-22] MEDS: Sodium Chloride 0.45% 1,000 ML IV SCH (12:08)
[2017-04-22] MEDS: Warfarin Sodium 5 MG TAB PO SCH (15:20)
[2017-04-23 04:48] LABS: Prothrombin Time 14.7 SEC (12.0-14.7)
[2017-04-23] MEDS: Insulin Regular 300 UNITS/3 ML VIAL SC PRN ×4 (05:41→20:58)
[2017-04-23] MEDS: Sodium Chloride 0.45% 1,000 ML IV SCH (05:41)
[2017-04-23] MEDS: Losartan Potassium 25 MG TAB PO SCH (08:08)
[2017-04-23] MEDS: Amantadine HCl 100 mg Capsule PO SCH ×3 (08:08→20:59)
[2017-04-23] MEDS: Clopidogrel Bisulfate 75 MG TAB PO SCH (08:08)
[2017-04-23] MEDS: Docusate 100 MG CAP PO SCH ×2 (08:08→21:02)
[2017-04-23] MEDS: Gabapentin 300 MG CAP PO SCH ×3 (08:09→20:59)
[2017-04-23] MEDS: Enoxaparin Sodium 40 MG/0.4 ML SYRINGE SC SCH ×2 (08:09→09:00)
[2017-04-23] MEDS: Carvedilol 25 MG TAB PO SCH ×2 (08:09→21:02)
[2017-04-23] MEDS: Famotidine 20 MG TAB PO SCH ×2 (08:09→20:59)
--- NOTE | 2017-04-23 12:11 | PRG ---
DATE OF SERVICE: 04/23/2017 SUBJECTIVE: She says she had trouble choking on breakfast this morning. PHYSICAL EXAMINATION: VITAL SIGNS: Temperature 98.3, pulse 76, respirations 22, O2 sat 100%, blood pressure 130/57. HEENT: Unremarkable. NECK: Tracheostomy in good position with some secretions. LUNGS: Coarse breath sounds. CARDIAC: S1 and S2 regular. ABDOMEN: Soft. EXTREMITIES: No edema. LABORATORY DATA: White blood cell count 11.4, hematocrit 25.4, platelet count 333. INR 1.1. ASSESSMENT: 1. Status post occlusion of tracheostomy leading to respiratory distress. 2. Possible aspiration. 3. Anticoagulated for thromboembolic disease. She restarted warfarin yesterday. 4. Multiple sclerosis. 5. Bilateral vocal cord dysfunction leading to tracheostomy. 6. Hypertension. PLAN: 1. We will go ahead and get a speech therapy evaluation to see if she is safe to swallow. 2. Warfarin has been restarted and we will follow her anticoagulation.
--- NOTE | 2017-04-23 13:47 | EKG ---
Test Reason : SOB Blood Pressure : / mmHG Vent. Rate : 082 BPM Atrial Rate : 082 BPM P-R Int : 146 ms QRS Dur : 070 ms QT Int : 380 ms P-R-T Axes : 091 060 090 degrees QTc Int : 443 ms Normal sinus rhythm Normal ECG Confirmed by LILO STEELE, YAYA ([id number]), marketing editor MAMI GOLDBERG ([id number] on 04/23/2017 1:46:39 PM Referred By: Confirmed By:YAYA NAGY MD
[2017-04-23] MEDS: Warfarin Sodium 5 MG TAB PO SCH (15:11)
[2017-04-23] MEDS: Lorazepam 1 MG TAB PO PRN (17:24)
[2017-04-24] MEDS: Sodium Chloride 0.45% 1,000 ML IV SCH (01:09)
[2017-04-24 04:46] LABS: Prothrombin Time 19.1 SEC (12.0-14.7)
[2017-04-24] MEDS: Insulin Regular 300 UNITS/3 ML VIAL SC PRN ×3 (05:29→17:23)
[2017-04-24] MEDS: Amantadine HCl 100 mg Capsule PO SCH ×3 (08:14→20:58)
[2017-04-24] MEDS: Docusate 100 MG CAP PO SCH ×2 (08:15→20:58)
[2017-04-24] MEDS: Clopidogrel Bisulfate 75 MG TAB PO SCH (08:15)
[2017-04-24] MEDS: Famotidine 20 MG TAB PO SCH ×2 (08:15→20:59)
[2017-04-24] MEDS: Losartan Potassium 25 MG TAB PO SCH (08:15)
[2017-04-24] MEDS: Gabapentin 300 MG CAP PO SCH ×3 (08:15→20:59)
[2017-04-24] MEDS: Carvedilol 25 MG TAB PO SCH ×2 (08:15→20:58)
[2017-04-24] MEDS: Enoxaparin Sodium 40 MG/0.4 ML SYRINGE SC SCH (08:16)
--- NOTE | 2017-04-24 09:36 | PRG ---
DATE OF SERVICE: 04/24/2017 SUBJECTIVE: The patient is still coughing up copious amounts around her tracheostomy. OBJECTIVE: VITAL SIGNS: Temperature 97.5, pulse 89, respirations 22, O2 sat 100%, and blood pressure 121/49. HEENT: Unremarkable. NECK: Copious tracheal secretions noted. LUNGS: Coarse rhonchi. CARDIAC: S1 and S2 regular. ABDOMEN: Soft. EXTREMITIES: No edema. LABORATORY DATA: Her blood glucoses are running in the 300s. INR is 1.6. ASSESSMENT: 1. Status post occlusion tracheostomy in respiratory distress. 2. Tracheitis. 3. Hypoglycemia. 4. Multiple sclerosis. PLAN: 1. My guess would be the steroids are adversely affecting her blood sugars so I will go down on phi t today. 2. Continue anticoagulation. 3. We would go ahead and add antibiotics for the heavy tracheal secretions. 4. May need to consider a scopolamine patch.
[2017-04-24] MEDS: Warfarin Sodium 5 MG TAB PO SCH (15:26)
[2017-04-24] MEDS: Lorazepam 1 MG TAB PO PRN (15:29)
[2017-04-24] MEDS: NPH, Human Insulin Isophane 300 UNIT/3 ML VIAL SC SCH (20:59)
[2017-04-25 05:35] LABS: Prothrombin Time 30.7 SEC (12.0-14.7)
[2017-04-25] MEDS: Insulin Regular 300 UNITS/3 ML VIAL SC PRN (06:05)
[2017-04-25] MEDS: NPH, Human Insulin Isophane 300 UNIT/3 ML VIAL SC SCH (08:18)
[2017-04-25] MEDS: Carvedilol 25 MG TAB PO SCH ×2 (08:20→20:41)
[2017-04-25] MEDS: Clopidogrel Bisulfate 75 MG TAB PO SCH (08:20)
[2017-04-25] MEDS: Docusate 100 MG CAP PO SCH ×2 (08:20→20:40)
[2017-04-25] MEDS: Losartan Potassium 25 MG TAB PO SCH (08:20)
[2017-04-25] MEDS: Famotidine 20 MG TAB PO SCH ×2 (08:20→20:41)
[2017-04-25] MEDS: Gabapentin 300 MG CAP PO SCH ×3 (08:21→20:40)
[2017-04-25] MEDS: Amantadine HCl 100 mg Capsule PO SCH ×3 (08:23→20:42)
[2017-04-25] MEDS: Enoxaparin Sodium 40 MG/0.4 ML SYRINGE SC SCH (08:23)
[2017-04-25] MEDS ORDERED: Dextrose 5% in Water 1,000 ML IV PRN (10:28)
--- NOTE | 2017-04-25 10:38 | PRG ---
DATE OF SERVICE: 04/25/2017 SERVICE: Pulmonary Medicine. INTERVAL HISTORY: The patient is doing fine from a cardiovascular and respiratory standpoint. She denies any current fevers, chills, nausea, vomiting or chest discomfort. She is breathing comfortably. She is being transitioned off of the Lovenox on to Coumadin. Otherwise, there were no events overnight. PHYSICAL EXAMINATION: VITAL SIGNS: Afebrile, pulse 74, blood pressure 127/71, respirations 20 and saturation 100% on 6 liters via T-collar mask. HEENT: Normocephalic, atraumatic. Sclerae are white, conjunctivae pink. Oral and nasal mucosa is moist without lesions. LUNGS: Excellent air entry. There was much improved air entry without a prolonged expiratory phase at this point. She has a slightly prolonged expiratory phase. HEART: Normal rate and regular. ABDOMEN: Soft, nontender and nondistended. Bowel sounds are positive. MUSCULOSKELETAL: No cyanosis or clubbing. No pitting in the bilateral lower extremities. NEUROLOGIC: Grossly nonfocal. LABORATORY DATA: INR 2.8. Blood sugars are elevated. ASSESSMENT: 1. Bilateral vocal cord paralysis, status post tracheostomy placement. 2. Type 2 diabetes mellitus. 3. Multiple sclerosis. 4. History of adenocarcinoma of the lung, status post resection. 5. History of pulmonary embolus. PLAN: We will continue deescalating prednisone. The Lovenox injections will be discontinued. We will continue following INR. We will get speech pathology to evaluate the patient for a Passy-Fide valve. Physical therapy will be involved and we will get her into a chair three times daily. Rodas catheter will be removed today. We will start working on mobilization efforts. She is likely 1-2 days away from being discharged from the hospital, but we will make certain that she has a snf facility lined up on discharge. Pulmonary will continue to follow while she remains in house. DANNI
[2017-04-25] MEDS: HumaLOG 300 UNITS/3 ML VIAL SC PRN ×2 (10:47→16:44)
[2017-04-25] MEDS: HumaLOG 300 UNITS/3 ML VIAL SC SCH ×2 (10:47→16:43)
[2017-04-25] MEDS ORDERED: HYDROcodone/Acetaminophen 5/325 mg Tablet PO PRN (11:41)
[2017-04-25] MEDS: HYDROcodone/Acetaminophen 5/325 mg Tablet PO PRN ×2 (12:31→19:54)
[2017-04-25] MEDS: Warfarin Sodium 5 MG TAB PO SCH (15:04)
[2017-04-25] MEDS: Insulin Detemir 100 UNITS/ML 20 UNITS in Admixture Fee 1 EACH SC SCH (20:47)
[2017-04-26 04:50] LABS: Prothrombin Time 40.2 SEC (12.0-14.7)
[2017-04-26] MEDS: Amantadine HCl 100 mg Capsule PO SCH ×3 (08:48→20:53)
[2017-04-26] MEDS: Docusate 100 MG CAP PO SCH ×2 (08:48→20:53)
[2017-04-26] MEDS: Gabapentin 300 MG CAP PO SCH ×3 (08:49→20:54)
[2017-04-26] MEDS: Famotidine 20 MG TAB PO SCH ×2 (08:49→20:53)
[2017-04-26] MEDS: Insulin Detemir 100 UNITS/ML 20 UNITS in Admixture Fee 1 EACH SC SCH ×2 (08:49→20:54)
[2017-04-26] MEDS: Carvedilol 25 MG TAB PO SCH ×2 (08:49→20:54)
[2017-04-26] MEDS: Losartan Potassium 25 MG TAB PO SCH (08:49)
[2017-04-26] MEDS: Clopidogrel Bisulfate 75 MG TAB PO SCH (08:49)
[2017-04-26] MEDS: HumaLOG 300 UNITS/3 ML VIAL SC SCH ×3 (08:50→17:02)
[2017-04-26] MEDS ORDERED: Enoxaparin Sodium 40 MG/0.4 ML SYRINGE SC SCH (09:00)
--- NOTE | 2017-04-26 10:27 | PRG ---
DATE OF SERVICE: 04/26/2017 SERVICE: Pulmonary Medicine. INTERVAL HISTORY: The patient is doing fine from a respiratory standpoint. She denies recurrent sh ortness of breath or chest discomfort. Her breathing is much improved ever since her tracheostomy w as placed. She got out of the bed into a chair yesterday. She requires considerable amount of assi stance when this occurs. Otherwise, there were no overnight events. PHYSICAL EXAMINATION: VITAL SIGNS: Afebrile, pulse 60, blood pressure 132/62, respirations 20, saturation 100% on 28% FIO 2 via T-collar. HEENT: Normocephalic, atraumatic. Sclerae are white, conjunctivae pink. Oral and nasal mucosa is moist without lesions. LUNGS: Excellent air entry. Rhonchi are present. No prolonged expiratory phase or wheezing is sadi reciated. No crackles. HEART: Normal rate, regular. ABDOMEN: Soft, nontender, nondistended. Bowel sounds positive. MUSCULOSKELETAL: No cyanosis or clubbing. No pitting in the bilateral lower extremities. NEUROLOGIC: Grossly nonfocal. LABORATORY DATA: INR 3.9. Blood sugars are under slightly improved control. ASSESSMENT: 1. Bilateral vocal cord paralysis, status post tracheostomy placement. 2. Type 2 diabetes mellitus. 3. Multiple sclerosis. 4. History of adenocarcinoma of the lung, status post resection. 5. History of pulmonary embolus. PLAN: I will discontinue our antibiotics. The Coumadin will also be discontinued for the time quentin sultana. Once her INR starts to drop off again, we will restart her at 4 mg on a daily basis. This was h er previous dose when she was on Coumadin remotely. We will continue our mobilization efforts. Fro m my perspective, she is stable for transition back to her fpc facility. I will continu e to follow while she remains inhouse, however.
[2017-04-26] MEDS ORDERED: Warfarin Sodium 5 MG TAB PO SCH (16:00)
[2017-04-26] MEDS: HYDROcodone/Acetaminophen 5/325 mg Tablet PO PRN (22:19)
[2017-04-27 04:42] LABS: #Eosinphils 0.2 thou/uL (0.0-0.7); #Lymphocytes 2.4 thou/uL (1.20-3.40); #Monocytes 0.8 thou/uL (0.11-0.59); #Neutrophils 7.9 thou/uL (1.40-6.50); %Basophils 0.3 % (0.0-1.0); %Eosinophils 1.7 % (0.0-10.0); %Lymphocytes 21.4 % (21.0-51.0); %Monocytes 6.9 % (0.0-10.0); Hematocrit 24.4 % (36.0-47.0); Mean Platelet Volume 6.3 fL (7.4-10.4); Red Blood Cell (RBC) Count 2.47 mill/uL (4.20-5.40); White Blood Cell (WBC) Count 11.4 thou/uL (4.8-10.8)
[2017-04-27 04:47] LABS: Prothrombin Time 32.7 SEC (12.0-14.7)
[2017-04-27 04:53] LABS: Anion Gap 8 mmol/L (10-20); BUN (Urea Nitrogen) 24 mg/dL (9.8-20.1); Calc. Creatinine Clearance 63 mL/min (70-130); Carbon Dioxide 33 mmol/L (23-31); Chloride 100 mmol/L (98-107); Estimated GFR-MDRD 62; Phosphorus 2.9 mg/dL (2.3-4.7)
[2017-04-27] MEDS: HumaLOG 300 UNITS/3 ML VIAL SC SCH ×2 (07:50→11:36)
[2017-04-27] MEDS: Insulin Detemir 100 UNITS/ML 20 UNITS in Admixture Fee 1 EACH SC SCH (08:48)
[2017-04-27] MEDS: Losartan Potassium 25 MG TAB PO SCH (08:49)
[2017-04-27] MEDS: Gabapentin 300 MG CAP PO SCH (08:50)
[2017-04-27] MEDS: Famotidine 20 MG TAB PO SCH (08:50)
[2017-04-27] MEDS: Docusate 100 MG CAP PO SCH (08:50)
[2017-04-27] MEDS: Clopidogrel Bisulfate 75 MG TAB PO SCH (08:50)
[2017-04-27] MEDS: Amantadine HCl 100 mg Capsule PO SCH (08:51)
[2017-04-27] MEDS: Carvedilol 25 MG TAB PO SCH (08:51)
[2017-04-27] MEDS ORDERED: Insulin Detemir 100 UNITS/ML 25 UNITS in Admixture Fee 1 EACH SC SCH ×4 (11:20)
--- NOTE | 2017-04-27 11:33 | PRG ---
DATE OF SERVICE: 04/27/2017 SERVICE: Pulmonary Medicine. INTERVAL HISTORY: The patient is doing great from a cardiovascular and respiratory standpoint. She is breathing comfortably. She is getting stronger on day by day basis. There were no overnight ev ents. She has no specific complaints. Her INR is smaller this morning. As such, we will restart h er Coumadin in a slightly reduced dose. PHYSICAL EXAMINATION: VITAL SIGNS: Afebrile, pulse 59, blood pressure 125/42, respirations 18, saturation 100% on 28% FiO 2 delivered via T-collar. HEENT: Normocephalic, atraumatic. Sclerae are white, conjunctivae pink. Oral mucosa is moist with out lesions. LUNGS: Rhonchi are present, but clear with cough. There is not in the way of prolonged expiratory phase or wheezing. No crackles. HEART: Normal rate, regular. ABDOMEN: Soft, nontender, and nondistended. Bowel sounds positive. MUSCULOSKELETAL: No cyanosis or clubbing. No pitting in the bilateral lower extremities. NEUROLOGIC: Grossly nonfocal. LABORATORY DATA: WBC 11.4, hemoglobin 7.7, stable. Platelets 510. INR 3.0 and down trending. Bas ic metabolic profile is completely unremarkable with a creatinine of 0.9. Bicarbonate is up to 33. Magnesium and phosphorus fall normal limits. Blood sugars ranged from 201-337. ASSESSMENT: 1. Bilateral vocal cord paralysis, status post tracheostomy. 2. Type 2 diabetes mellitus. 3. Multiple sclerosis. 4. History of adenocarcinoma of the lung, status post resection. 5. History of pulmonary embolism. PLAN: We will restart Coumadin 4 mg on a daily basis. Her INR will need to be followed in the outp atient setting. Trach care will need to be continued at her snf facility. She has been accepted. At this point, she is stable for transition out of the hospital. As such, we will put i n our discharge order. I have counseled her extensively on appropriate trach care. She knows that she is to clean her inner cannula at least twice daily, but more frequently if necessary. She also understands that she is to have humidified air through the tracheostomy for the rest of her life.
[2017-04-27 11:56] VITALS: TEMP 98
[2017-04-27 12:02] VITALS: BP 118/57
[2017-04-27] MEDS ORDERED: Warfarin Sodium 2 MG TAB PO SCH (17:00)
== END 2017-04-27 15:57 | disposition swing bed (61) | DRG 208 ==
LOC: ERS 08:32 → CCU 08:59 → IMCU/EMU 04-22 13:25
PROVIDERS: ADMIT Internal Medicine Critical Care Medicine; ATTEND Internal Medicine Critical Care Medicine
PROC: 5A1945Z Respiratory Ventilation, 24-96 Consecutive Hours (ICD-10-PCS; 2017-04-21)
PROC: 0B21XFZ Change Tracheostomy Device in Trachea, External Approach (ICD-10-PCS; principal; 2017-04-22)
DX: J95.09 Other tracheostomy complication (principal); J96.90 Respiratory failure, unspecified, unspecified whether with hypoxia or hypercapnia; Y83.8 Other surgical procedures as the cause of abnormal reaction of the patient, or of later complication, without mention of misadventure at the time of the procedure; J38.02 Paralysis of vocal cords and larynx, bilateral; G35 Multiple sclerosis; E11.9 Type 2 diabetes mellitus without complications; Z86.711 Personal history of pulmonary embolism; Z85.118 Personal history of other malignant neoplasm of bronchus and lung; E16.2 Hypoglycemia, unspecified; J04.10 Acute tracheitis without obstruction; Z79.01 Long term (current) use of anticoagulants; I10 Essential (primary) hypertension; Z95.5 Presence of coronary angioplasty implant and graft
CPT/HCPCS: 36415; 36416; 51702; 71010; 80048; 82805; 83735; 84100; 85025; 85610; 85730; 86850; 86900; 86901; 93005; 94002; 94640; 94760; 96360; A4216; G8978-GP-CL; G8979-GP-CJ; G9171-GN-CL; G9172-GN-CJ; J1815; J2920; J7620